=== PATIENT | male | born 1965 | race Caucasian/White ===

== ENCOUNTER → 2021-12-29 11:22 | Outpatient (BNVA) | payer OTHER, SELFPAY | PROVIDERS: Family Provider Family Medicine; PCP Family Medicine; Visit Provider Family Medicine | DX: E78.5 Hyperlipidemia, unspecified (principal); I10 Essential (primary) hypertension; E11.8 Type 2 diabetes mellitus with unspecified complications | CPT/HCPCS: 80053; 80061; 83036; 85025 ==

== ENCOUNTER 2022-02-16 07:22 | Outpatient (CLI) | payer OTHER, SELFPAY ==
--- NOTE | 2022-02-16 | ECG_ITS ---
[facility] Test Date: 2022-02-16 Pat Name: Evangelista Santos Department: Room: Gender: Male Patient Transport Orderly: : 1965 Requested By: Pamela Urbina Order Number: [id number] Saurabh MD: Pamela Urbina M.D. Interpretive Statements NAME OF STUDY: EXERCISE SESTAMIBI STRESS TEST INDICATION: Chest Pain, PROCEDURE: The baseline electrocardiogram showed normal sinus rhythm with normal ST-Ts. At the baseline, the patient's blood pressure was 142/105 mm Hg with a heart rate of 90. The patient exercised for 4 minutes and 46 seconds on a standard Heber protocol. Patient attained a maximum heart rate of 150 beats per minute(92% of the maximum predicted heart rate) with a blood pressure at the peak exercise of 196/91 mm Hg. The EKG at the peak exercise revealed no significant changes. Patient did not have any chest pain or any significant arrhythmis with the exercise Sestamibi was injected 1 minute prior to the peak exercise During the recovery phase, there were no new changes. Blood pressure at the end of the recovery phase was 134/97 mm Hg with a heart rate of 103 per minute. CONCLUSION: 1. No significant EKG changes with the treadmill exercise 2. No exercise-induced chest pain or cardiac arrhythmia. Hypertensive response to exercise 3. Impaired exercise tolerance, attained a maximum of 7.0 METs 4. Sestamibi/Sestamibi perfusion results pending; see separate report. Electronically Signed On 02-21-2022 19:46:44 CDT by Pamela Urbina M.D. [id number]
[2022-02-16 07:30] VITALS: BMI 47.2
--- NOTE | 2022-02-16 08:03 | NMCV_ITS ---
NM simba perf SPECT r/s* [id number] Tom Evangelista Age: 56 Gender: M : 1965 Exam Date: 02/16/2022 08:45 Ordering Phys: Pamela Urbina MD ([email or web address]) Technologist: KALE Lujan Exam Location: [facility] Indications: CORONARY ANGIOPLASTY STATUS STRESS TEST [facility] IMAGE PROTOCOL Rest/Stress 1 Exercise Day Radiopharmaceutical Dose (mCi) Administration Site Administered by Rest: Tc-99m 10.7 IV KALE Tompkins Sestamibi Stress:Tc-99m 32.5 IV KALE Tompkins Sestamibi Rest: 16-Feb-2022 60 Discovery 630 Stress: 16-Feb-2022 30 Discovery 630 Radiopharmaceutical was injected at 87 % maximum heart rate. Images obtained in supine and prone position. SPECT RESULTS Technical Quality: Excellent Raw Data Analysis: Normal Image Corrections: No attenuation or motion correction applied Summed Stress Score: 1 Summed Rest Score: 0 Summed Difference Score: 1 PERFUSION FINDINGS Yes small area of decreased tracer uptake in the mid anteroseptal and inferior wall segments regions. Some reversibility was noted in the mid anteroseptal region with the supine imaging. However with the prone imaging, no significant reversible defects were noted FUNCTIONAL RESULTS (calculated via Gated SPECT) Stress Image LV EF (%): 67 Stress EDV (mL):124 TID: 0.94 Stress ESV (mL):41 FUNCTIONAL FINDINGS: Segmental wall motion analysis revealing no gross wall motion normalities. IMPRESSIONS 1. Small area of reversible defect in the mid anteroseptal region with the supine imaging suggesting ischemia in the distribution of the left anterior descending artery. However because of the inconsistency, the reliability is questionable. 2. Normal LV ejection fraction of 67%. 3. LV wall motion analysis revealing no gross wall motion normalities. 4. Normal LV volume No similar previous studies are available for comparison Dr Pamela Urbina MD [facility] (Electronically Signed) Final Date: 16 February 2022 20:42 S
[2022-02-16 09:42] VITALS: BP 134/97; PULSE 100
== END 2022-02-16 07:23 | disposition home or self-care (01) ==
LOC: CDL 07:25
PROVIDERS: PCP Family Medicine; Visit Provider Internal Medicine Cardiovascular Disease
DX: R07.9 Chest pain, unspecified (principal); Z98.61 Coronary angioplasty status
CPT/HCPCS: 78452; 93017; A9500

== ENCOUNTER → 2022-02-20 11:27 | Outpatient (BNVA) | payer OTHER, SELFPAY | PROVIDERS: PCP Family Medicine; Visit Provider Clinical Nurse Specialist Adult Health | DX: R30.0 Dysuria (principal); R31.9 Hematuria, unspecified | CPT/HCPCS: 81000 ==

== ENCOUNTER 2022-02-27 13:58 | Outpatient (CLI) | payer OTHER, SELFPAY ==
--- NOTE | 2022-02-27 14:30 | USCV_ITS ---
Evangelista Santos Age: 56 Gender: M : 1965 Exam Date: 02/27/2022 14:17 Ordering Phys: Pamela Urbina MD ([email or web address]) Technologist: Filomena Guevara Exam Location: [facility] [place] Indication: SOB BP: 142 / 86 HR: 70 Rhythm: Sinus Technical Quality: Adequate MEASUREMENTS (Male / Female) Normal Values 2D ECHO LV Diastolic Diameter PLAX 4.7 cm 4.2 - 5.9 / 3.9 - 5.3 cm LV Systolic Diameter PLAX 2.3 cm LV Chamber Size 4.6 cm IVS Diastolic Thickness 1.5 cm 0.6 - 1.0 / 0.6 - 0.9 cm IVS Systolic Thickness 1.7 cm LVPW Diastolic Thickness 1.8 cm 0.6 - 1.0 / 0.6 - 0.9 cm LVPW Systolic Thickness 1.8 cm RV Chamber Size 4.5 cm LVOT Diameter 2.0 cm LV Ejection Fraction 2D Teich 82.7 % LV Ejection Fraction MOD 2C 78.1 % LV Ejection Fraction 2C AL 77.2 % LA Diameter 3.6 cm LA Width 3.2 cm LA Height 4.7 cm RA Width 3.6 cm RA Height 4.2 cm Aorta at Sinotubular Diameter 3.3 cm IVC Diameter 2.4 cm M-MODE Aortic Annulus Diameter 3.8 cm LA Ao Ratio MM 1.1 MV E Point Septal Separation 0.6 cm DOPPLER AV Peak Velocity 169.0 cm/s LVOT Peak Velocity 126.0 cm/s AV Area Cont Eq vti 1.8 cm squared AV Area Cont Eq pk 2.3 cm squared MV Area PHT 4.4 cm squared Mitral E to A Ratio 1.4 MV E' Velocity 124.0 cm/s Mitral E to LV E' Septal Ratio 16.8 TR Peak Velocity 202.3 cm/s TR Peak Gradient 16.4 mmHg TR Mean Velocity 129.5 cm/s TR Mean Gradient 8.1 mmHg TR Velocity Time Integral 41.7 cm TV Peak E Velocity 44.0 cm/s Right Atrial Pressure 3.0 mmHg Pulmonary Artery Systolic Pressu 19.4 mmHg PV Peak Velocity 83.0 cm/s RV Acceleration Time 0.1 s RV Ejection Time 0.3 s RV AcT/ET 0.4 FINDINGS Left Ventricle Normal left ventricular size and systolic function, EF 70 %. No regional wall motion abnormalities. Right Ventricle The right ventricle is normal in size and function. Right Atrium The right atrium is normal in size. Left Atrium The left atrium is normal in size. Mitral Valve No gross abnormalities noted Aortic Valve No gross abnormalities noted Tricuspid Valve No gross abnormalities noted.trace tricuspid valve regurgitation. Pulmonic Valve Pulmonic valve not well visualized. Pericardium Normal pericardium without effusion. Aorta Normal ascending aorta dimension. IVC Inferior vena cava not visualized. CONCLUSIONS Normal left ventricular size and systolic function, EF 70 %. No regional wall motion abnormalities. Trace tricuspid valve regurgitation. Normal cardiac chamber sizes. No significant valvular abnormalities There is no pericardial effusion. Compared to the study from 12/21/2016, there may not be significant change Technically difficult study because of the poor ultrasonic window. Dr Pamela Urbina MD [facility] (Electronically Signed) Final Date: 02 March 2022 09:22 S
== END 2022-02-27 13:59 | disposition home or self-care (01) ==
LOC: RAD 13:59
PROVIDERS: PCP Family Medicine; Visit Provider Internal Medicine Cardiovascular Disease
DX: I25.118 Atherosclerotic heart disease of native coronary artery with other forms of angina pectoris (principal); R06.02 Shortness of breath; I36.1 Nonrheumatic tricuspid (valve) insufficiency
CPT/HCPCS: 93306

== ENCOUNTER → 2022-10-06 08:36 | Outpatient (BNVA) | payer OTHER, SELFPAY | PROVIDERS: PCP Family Medicine; Visit Provider Family Medicine | DX: I10 Essential (primary) hypertension (principal); E78.5 Hyperlipidemia, unspecified; E11.9 Type 2 diabetes mellitus without complications; Z00.00 Encounter for general adult medical examination without abnormal findings; M19.90 Unspecified osteoarthritis, unspecified site | CPT/HCPCS: 80053; 80061; 83036; 84153; 84550; 85025; 86140; 86160; 86162; 86235; 86255; 86376; 86431 ==

== ENCOUNTER → 2022-12-21 17:10 | Outpatient (BNVA) | payer OTHER, SELFPAY | PROVIDERS: PCP Family Medicine; Visit Provider Family Medicine | DX: J06.9 Acute upper respiratory infection, unspecified (principal); Z20.822 Contact with and (suspected) exposure to COVID-19 | CPT/HCPCS: 87426 ==

== ENCOUNTER 2022-12-26 18:59 | Emergency (ER) | payer OTHER, SELFPAY ==
[2022-12-26 19:18] VITALS: BP 166/80; PULSE 82; RESP 14; TEMP 36.9; O2SAT 95
--- NOTE | 2022-12-26 19:42 | ED_ITS ---
HPI - Skin/Abscess/Foreign Bdy General: Chief complaint: Skin/Abscess/Foreign Body Stated complaint: Swollen Tick Bite Time Seen by Provider: 12/26/22 19:20 Source: patient Mode of arrival: ambulatory Limitations: no limitations History of Present Illness: 57-year-old male states that he had a bug bite to his left inner leg last week. He states have some body aches his PCP thought he may have tick fever started him on doxycycline he states that over the last 2 days that spot has grown larger it appears to be an abscess. States he squeezed it did get some purulent drainage. He denies any fevers he denies any worsening proving factors. Associated symptoms: Reports chills; Deny fever(s), nausea or vomiting Review of Systems Const: Reports: chills and body aches; Denies: fever(s) ENMT: Denies: throat pain Card: Denies: chest pain Resp: Denies: dyspnea GI: Denies: nausea or vomiting Musc: Denies: back pain Skin/Breast: Denies: rash Neuro: Denies: headache(s) PFSH ED PFSH: Medical History Atherosclerotic heart disease CAD (coronary artery disease), [place] coronary artery Diabetes Hyperlipidemia Hypertension Lung nodule KARY on CPAP Sleep disorder Surgical History History of PTCA PCI to mid bifurcating LAD with drug-eluting stent and balloon angioplasty to ostial jailed diagonal - 2 Hx of arthroscopic knee surgery No significant past surgical history Family History Father CAD (coronary artery disease), Onset Age: 50 valve replacement, [place] Diabetes Hypertension Cancer Lung disease Bleeding disorder Clotting disorder Grandfather No problems noted. Mother Cancer Lung disease Sister Cancer Lung disease Denies family history of Dementia Chronic kidney disease (CKD) Suicide Anesthesia complication Stroke Social History Smoking and tobacco status: never smoked Alcohol intake: former Substance/Drug Use: never Physical Exam Const: COMMON NORMALS: no acute distress and patient oriented x3 HENMT: COMMON NORMALS: normocephalic and atraumatic HEAD & SCALP: normocephalic and atraumatic Eye: COMMON NORMALS: conjunctivae normal CONJUNCTIVA: Yes conjunctivae normal Neck/C-Spine: COMMON NORMALS: supple Chest: COMMONS NORMALS: normal inspection of the chest Resp: COMMON NORMALS: normal respiratory effort Cardio: COMMON NORMALS: regular rate RATE: regular rate Extremity: NARRATIVE EXTREMITY EXAM: 3 cm abscess to the left inner thigh Neuro: COMMON NORMALS: patient oriented x3 Psych: COMMON NORMALS: mental status grossly normal Skin: COMMON NORMALS: no rashes or lesions noted GENERAL SKIN EXAM: no rashes or lesions noted Procedures Abscess I/D Site: lower extremity Side (if applicable): right Local Anesthetic: lidocaine 1% Amount of anesthesia used (mL): 8 Technique: incised with #11 blade Irrigation: Yes Course Vital Signs: Vital signs: Vital Signs Temperature 98.4 F 12/26/22 19:18 Pulse Rate 82 12/26/22 19:18 Respiratory Rate 14 12/26/22 19:18 Blood Pressure 166/80 12/26/22 19:18 Pulse Oximetry 95 12/26/22 19:18 Oxygen Delivery Me thod Room Air 12/26/22 19:18 MDM - Skin/Abscess/Foreign Bdy Medicial Decision Making Patient presents with an abscess to his left leg did incise and drain it we will start him on Bactrim he is to continue his doxycycline he is to follow-up with PCP and return if worsening. Discharge Plan Discharge Patient Disposition: Home Clinical Impression: Abscess of skin or subcutaneous tissue Condition: Stable Prescriptions: New sulfamethoxazole-trimethoprim [Bactrim DS] 800-160 mg tablet 1 tab PO BID 10 Days Qty: 20 0RF No Action naproxen sodium [Aleve] 220 mg tablet 220 mg PO BID PRN doxycycline hyclate 100 mg capsule 100 mg PO BID Qty: 20 0RF prednisone 20 mg tablet 20 mg PO DAILY Qty: 5 0RF Rx Instructions: take with food. ondansetron 4 mg tablet,disintegrating 4 mg PO Q6H PRN (Reason: nausea and vomiting) Qty: 20 11RF amlodipine 5 mg tablet 5 mg PO DAILY Qty: 90 3RF atorvastatin 40 mg tablet 40 mg PO DAILY Qty: 90 3RF clopidogrel 75 mg tablet 75 mg PO DAILY Qty: 90 3RF lisinopril-hydrochlorothiazide 20-12.5 mg tablet 1 tab PO DAILY Qty: 90 3RF metformin 500 mg tablet See Rx Instructions .ROUTE .COMPLEX Qty: 180 3RF Dose Instruction: TAKE 1 TABLET TWICE A DAY Rx Instructions: TAKE 1 TABLET TWICE A DAY Discharge Orders: Discharge ED (Routine); Ordered 12/26/22 Ordered By: Bebe Barreto Referrals: Richmond Rogel MD [Primary Care Provider] - Discharge Diet: Advance as tolerated Discharge Activity: Resume usual activity Patient Instructions: Abscess (ED) Coding Level of Care Code ED 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
== END 2022-12-26 19:55 | disposition home or self-care (01) ==
PROVIDERS: Emergency Provider Emergency Medicine; PCP Family Medicine
DX: L02.416 Cutaneous abscess of left lower limb (principal); I25.10 Atherosclerotic heart disease of native coronary artery without angina pectoris; E11.9 Type 2 diabetes mellitus without complications; Z79.02 Long term (current) use of antithrombotics/antiplatelets; E78.5 Hyperlipidemia, unspecified; I10 Essential (primary) hypertension
CPT/HCPCS: 10060; 99283

== ENCOUNTER → 2023-02-01 11:18 | Outpatient (BNVA) | payer OTHER, SELFPAY | PROVIDERS: PCP Family Medicine; Visit Provider Internal Medicine Rheumatology | DX: Z79.899 Other long term (current) drug therapy (principal); M19.90 Unspecified osteoarthritis, unspecified site; Z11.1 Encounter for screening for respiratory tuberculosis; Z11.59 Encounter for screening for other viral diseases; M45.6 Ankylosing spondylitis lumbar region | CPT/HCPCS: 36415; 73130; 73630; 83520; 86200; 86480; 86704; 86803; 86812; 87340 ==

== ENCOUNTER 2023-02-11 15:16 | Outpatient (CLI) | payer OTHER, SELFPAY ==
--- NOTE | 2023-02-11 15:23 | XR_ITS ---
WS: [id number] EXAMINATION: XR chest 2V* [id number] REASON FOR EXAM: positive ppd COMPARISON: 07/08/2017 ORDER DATE: 02/11/2023 3:27 PM FINDINGS: The lungs are clear of infiltrate. There is an ovoid smoothly outlined nodule in the lateral left u pper lung perhaps subpleural in location measuring 27 mm in long axis currently and previously 23 mm on 07/08/2017 without calcification. The cardiac and mediastinal outlines are unremarkable. There are no significant pleural effusions . No significant abnormalities are noted in the spine or remainder of the bony thorax. XR/XR chest 2V* [id number] IMPRESSION: No acute pulmonary change A SLIGHT INCREASE IN THE ABOVE-MENTIONED PULMONARY NODULE WHICH MAY REPRESENT A LIPOMA DUE TO ITS MINIMAL CHANGE IN A 5 YEAR PERIOD.
== END 2023-02-11 15:17 | disposition home or self-care (01) ==
PROVIDERS: PCP Family Medicine; Visit Provider Family Medicine
DX: R76.11 Nonspecific reaction to tuberculin skin test without active tuberculosis (principal); R91.1 Solitary pulmonary nodule
CPT/HCPCS: 71046

== ENCOUNTER → 2023-04-30 08:18 | Outpatient (BNVA) | payer OTHER, SELFPAY | PROVIDERS: PCP Family Medicine; Visit Provider Family Medicine | DX: Z22.7 Latent tuberculosis (principal); M06.041 Rheumatoid arthritis without rheumatoid factor, right hand; M06.042 Rheumatoid arthritis without rheumatoid factor, left hand; I10 Essential (primary) hypertension; E78.5 Hyperlipidemia, unspecified; E11.9 Type 2 diabetes mellitus without complications; M19.90 Unspecified osteoarthritis, unspecified site; Z79.899 Other long term (current) drug therapy; A93.8 Other specified arthropod-borne viral fevers | CPT/HCPCS: 80053; 80061; 80076; 82565; 84153; 85025; 86140 ==

== ENCOUNTER 2023-07-05 15:04 | Outpatient (CLI) | payer OTHER, SELFPAY ==
[2023-07-05 15:21] LABS: Basophils # 0.1 10^3/uL (0.0-0.1); Basophils % 1.1 %; Eosinophils # 0.2 10^3/uL (0.0-0.8); Eosinophils % 1.8 %; Hematocrit 49.4 % (37-53); Lymphocytes # 1.8 10^3/uL (0.8-4.8); Lymphocytes % 21.1 %; Mean Corpuscular Hemoglobin 29.6 pg (27-33); Mean Platelet Volume 11.3 fL (7.4-10.4); Monocytes # 0.7 10^3/uL (0.2-0.9); Monocytes % 7.8 %; Neutrophils # 5.72 10^3/uL (1.8-7.7); Neutrophils % 67.7 %; Nucleated Red Blood Cells % 0 %; Platelet Count 249 10^3/cmm (157-399); Red Blood Count 5.68 10^6/uL (3.85-5.65); Red Cell Distribution Width 13.1 % (12.1-15.1); White Blood Count 8.44 10^3/uL (3.29-11.43)
[2023-07-05 15:41] LABS: Alanine Aminotransferase 48 U/L (0-41); Albumin Level 4.6 g/dL (3.5-5.2); Alkaline Phosphatase 62 U/L (40-130); Aspartate Amino Transferase 25 U/L (0-40); Globulin 2.9 g/dL (1.3-4.6); Glomerular Filtration Rate 115.4 mL/min (90-130); Total Bilirubin 0.3 mg/dL (0.15-1.2); Total Protein 7.5 g/dL (6.6-8.7)
== END 2023-07-05 15:05 | disposition home or self-care (01) ==
LOC: LAB 15:05
PROVIDERS: Internal Medicine Rheumatology; PCP Family Medicine; Visit Provider Student in an Organized Health Care Education/Training Program
DX: M06.041 Rheumatoid arthritis without rheumatoid factor, right hand (principal); M06.042 Rheumatoid arthritis without rheumatoid factor, left hand; Z79.899 Other long term (current) drug therapy
CPT/HCPCS: 36415; 80076; 82565; 85025; 86140

== ENCOUNTER → 2023-12-23 13:02 | Outpatient (BNVA) | payer OTHER, SELFPAY | PROVIDERS: PCP Family Medicine; Visit Provider Family Medicine | DX: N40.0 Benign prostatic hyperplasia without lower urinary tract symptoms (principal); R97.20 Elevated prostate specific antigen [PSA] | CPT/HCPCS: 84153 ==

== ENCOUNTER → 2023-12-29 14:33 | Outpatient (BNVA) | payer OTHER, SELFPAY | PROVIDERS: PCP Family Medicine; Visit Provider Internal Medicine Rheumatology | DX: M06.041 Rheumatoid arthritis without rheumatoid factor, right hand (principal); M06.042 Rheumatoid arthritis without rheumatoid factor, left hand; Z79.899 Other long term (current) drug therapy; Z71.85 Encounter for immunization safety counseling; Z22.7 Latent tuberculosis | CPT/HCPCS: 80076; 82565; 85025; 86140 ==

== ENCOUNTER → 2024-03-06 13:42 | Outpatient (BNVA) | payer OTHER, SELFPAY | PROVIDERS: PCP Family Medicine; Visit Provider Family Medicine | DX: R50.9 Fever, unspecified (principal); M25.50 Pain in unspecified joint | CPT/HCPCS: 80053; 81000; 85025; 86140; 86618; 86666; 86757; 87426 ==

== ENCOUNTER → 2024-05-10 14:38 | Outpatient (BNVA) | payer OTHER, SELFPAY | PROVIDERS: PCP Family Medicine; Visit Provider Internal Medicine Rheumatology | DX: M17.9 Osteoarthritis of knee, unspecified (principal); M25.569 Pain in unspecified knee | CPT/HCPCS: 73562 ==

== ENCOUNTER → 2024-05-24 13:27 | Outpatient (BNVA) | payer OTHER, SELFPAY | PROVIDERS: PCP Family Medicine; Visit Provider Family Medicine | DX: R97.20 Elevated prostate specific antigen [PSA] (principal) | CPT/HCPCS: 84153 ==

== ENCOUNTER → 2024-07-07 08:34 | Outpatient (BNVA) | payer OTHER, SELFPAY | PROVIDERS: PCP Family Medicine; Visit Provider Family Medicine | DX: E11.9 Type 2 diabetes mellitus without complications (principal); R97.20 Elevated prostate specific antigen [PSA]; N40.0 Benign prostatic hyperplasia without lower urinary tract symptoms | CPT/HCPCS: 83036 ==

== ENCOUNTER 2024-11-27 16:03 | Outpatient (CLI) | payer OTHER, SELFPAY ==
[2024-11-27 16:48] LABS: Basophils # 0.1 10^3/uL (0.0-0.1); Basophils % 1.1 %; Eosinophils # 0.2 10^3/uL (0.0-0.8); Eosinophils % 2.7 %; Hematocrit 51.4 % (37-53); Lymphocytes # 2.3 10^3/uL (0.8-4.8); Lymphocytes % 26.3 %; Mean Corpuscular HGB Conc 31.9 g/dL (30-55); Mean Corpuscular Hemoglobin 28.5 pg (27-33); Mean Corpuscular Volume 89.2 fl (82-101); Mean Platelet Volume 11.2 fL (7.4-10.4); Monocytes # 0.8 10^3/uL (0.2-0.9); Monocytes % 8.6 %; Neutrophils # 5.32 10^3/uL (1.8-7.7); Neutrophils % 60.5 %; Nucleated Red Blood Cells % 0 %; Platelet Count 266 10^3/cmm (157-399); Red Blood Count 5.76 10^6/uL (3.85-5.65); Red Cell Distribution Width 13.4 % (12.1-15.1); White Blood Count 8.81 10^3/uL (3.29-11.43)
[2024-11-27 16:50] LABS: Erythrocyte Sedimentation Rate < 1 mm/hr (0-10)
[2024-11-27 17:32] LABS: Alanine Aminotransferase 43 U/L (0-41); Albumin Level 4.7 g/dL (3.5-5.2); Alkaline Phosphatase 78 U/L (40-130); Aspartate Amino Transferase 24 U/L (0-40); Globulin 2.6 g/dL (1.3-4.6); Glomerular Filtration Rate 114.6 mL/min (90-130); Total Bilirubin 0.3 mg/dL (0.15-1.2); Total Protein 7.3 g/dL (6.6-8.7)
== END 2024-11-27 16:04 | disposition home or self-care (01) ==
PROVIDERS: PCP Family Medicine; Visit Provider Internal Medicine Rheumatology
DX: Z79.899 Other long term (current) drug therapy (principal); M06.041 Rheumatoid arthritis without rheumatoid factor, right hand; M06.042 Rheumatoid arthritis without rheumatoid factor, left hand
CPT/HCPCS: 36415; 80076; 82565; 85025; 85651; 86140

== ENCOUNTER → 2024-11-28 12:01 | Outpatient (BNVA) | payer OTHER, SELFPAY | PROVIDERS: PCP Family Medicine; Visit Provider Internal Medicine Rheumatology | DX: M79.671 Pain in right foot (principal) | CPT/HCPCS: 73630 ==

== ENCOUNTER → 2024-12-07 08:23 | Outpatient (BNVA) | payer OTHER, SELFPAY | PROVIDERS: PCP Family Medicine; Visit Provider Family Medicine | DX: M06.041 Rheumatoid arthritis without rheumatoid factor, right hand (principal); M06.042 Rheumatoid arthritis without rheumatoid factor, left hand; I25.118 Atherosclerotic heart disease of native coronary artery with other forms of angina pectoris; E78.5 Hyperlipidemia, unspecified; R76.11 Nonspecific reaction to tuberculin skin test without active tuberculosis; R91.1 Solitary pulmonary nodule | CPT/HCPCS: G0103 ==

== ENCOUNTER → 2025-03-26 13:41 | Outpatient (BNVA) | payer OTHER, SELFPAY | PROVIDERS: PCP Family Medicine; Visit Provider Family Medicine | DX: Z00.00 Encounter for general adult medical examination without abnormal findings (principal); R30.0 Dysuria | CPT/HCPCS: 81000 ==

== ENCOUNTER → 2025-03-27 14:20 | Outpatient (BNVA) | payer OTHER, SELFPAY | PROVIDERS: PCP Family Medicine; Visit Provider Family Medicine | DX: Z00.00 Encounter for general adult medical examination without abnormal findings (principal); N39.0 Urinary tract infection, site not specified | CPT/HCPCS: 87086 ==

== ENCOUNTER → 2025-04-12 14:43 | Outpatient (BNVA) | payer OTHER, SELFPAY | PROVIDERS: PCP Family Medicine; Visit Provider Family Medicine | DX: N13.30 Unspecified hydronephrosis (principal) | CPT/HCPCS: 80053 ==

== ENCOUNTER 2025-04-30 06:01 | Emergency (ER) | payer OTHER, SELFPAY ==
--- OUTSIDE RECORDS SUMMARY | 2024-11-23 10:00 | XMS_ITS ---
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 Role Phone Richmond Rogel Primary Care Provider UnavailRichmond Hong Unavailable [phone] Jordana Palacios Unavailable REASON FOR VISIT 6m f/u w psa Encounters Encounter Location Date Provider Diagnosis [facility] [address] [place] [address] [address] 11/23/2024 Jordana Palacios Plan Of Treatment Next Appt Details Provider Name:Jordana Sarabia, 12/27/2025 03:00:00 PM, [address] [place] [address], [place], [address], Progress Notes * NICK RIVASOB: 4 (59 yo M)Acc No.[id number]:11/23/2024 Progress Notes Patient: CHARU BECK Provider: EVETTE Glaser :1965 A ge:59 Y S ex:Male Date:11/23/2024 Address:[address] , [place], [place] Pcp:Richmond Rogel Subjective: * Chief Complaints: * 6 m f/u w psa * Electronic signature of EVETTE Fritz on 04/30/2025 at 06:04 AM CDT Sign off status: Pending * Provider: EVETTE Glaser Date: 0 11/23/2024 Generated for Salvatore oates/Dimple/Ambrosio on: 1 06:04 AM CDT
--- OUTSIDE RECORDS SUMMARY | 2025-04-26 14:30 | XMS_ITS | Encounter Summary ---
Author Organization [facility] Address [address] [place] [address] Care Team Providers Care Store Keeper Name Role Phone Richmond Rogel MD Primary Care Provider [phone] Reason for Referral * CT Scan (Urgent) - Closed Specialty Diagnoses / Procedures Referred By Neda banks Referred To Contact Radiology Diagnoses Abdominal pain, RLQ Prostatitis, unspecified prostatitis type Hydronephrosis, unspecified hydronephrosis type Procedures CT ABDOMEN PELVIS W CONTRAST CT ABDOMEN PELVIS W CONTRAST Mini Don FNP [address] [place] [phone] Phone: tel: fax: [facility] CT Scan [place] [address] [place] [address] Phone: tel: fax: Referral ID Status Reason Start Date Expiration Date Visits Re quested Visits Authorized [id number] Closed 04/26/2025 05/27/2026 1 1 Reason for Visit * Reason Comments Establish Care Encounter Details Date Type Department Care Team (Late st Contact Info) Description 04/26/2025 2:30 PM CDT Office Visit [facility] Urology [address] [phone] Mini Don FNP [address] [place] [phone] Abdominal pain, RLQ (Primary Dx); Prostatitis, unspecified prostatitis type; BPH with obstruction/lower urinary tract symptoms; History of elevated PSA; Hydronephrosis, unspecified hydronephrosis type Social History Tobacco Use Types Packs/Day Years Used Date Smoking Tobacco: Never Smokeless Tobacco: Never Alcohol Use Standard Drinks/Week Comments No 0 (1 standard drink = 0.6 oz pur e alcohol) Feeling Safe Answer Date Recorded Are you in a relationship wi th someone who hurts you emotionally and/or physically? No 04/07/2025 Food Insecurity Answer Date Recorded Patient needs follow up regardin 11/08/2024 Transportation Needs Answer Date Record ed Patient needs follow up regardin 11/08/2024 Housing Stability Answer Date Recorded Social/Environmental Concerns No concerns Utility Needs Answer Date Recorded Patient needs follow up regardin 11/08/2024 Sex and Gender Information Value Date Recorded Sex Assigned at Male 07/06/2024 3:06 PM COMMISSARY ASSISTANT Legal Sex Male 4:52 PM COMMISSARY ASSISTANT Gender Identity Male 07/06/2024 3:06 PM COMMISSARY ASSISTANT Sexual Orientation Not on file documented as of this encounter Progress Notes * Britta Shell - 04/26/2025 4:04 PM CDT Bladder Catherization Date/Time: 04/26/25 4:04 PM Performed by: Britta Shell Authorized by: Mini Don Indications: catheter change Catheter size: 16F Comments: Patient here for catheter change. Balloon deflated, cath removed intact without difficulty. Inserted 16F coude tip catheter, inflated balloon 10mls, attached urinary drainage bag. Patient tolerated procedure well. * Mini Don FNP - 04/26/2025 12:58 PM CDT HISTORY & PHYSICAL EXAM Patient: Evangelista Santos / 59 y.o. / male : 1965 Chief Complaint: Hematuria History of Present Illness: Evangelista Santos is a 59 y.o. year-old male hospitalized in March for GASPER and bilateral hydronephrosis secondary to urinary retention and developed hematuria. States he had UTI symptoms that was treated by PCP with several antibiotics without relief. Dr. Haynes had seen in hospital, planned for outpatient cystoscopy and voiding trial. He failed trial of void on 04/19/2025 with over 1000 mL emptied from bladder. 04/23/2025 patient called in to report low-grade fever 99-102 (has not had for two days) with right lower abdominal pain (rated anywhere from 2-8/10), rectal pain, and bilateraltesticular pain. Reports pain was present prior to the catheter insertion but is worsening. Urine remains clear yellow in Kelly bag. Has seen urologist in [place] previously seen for elevated PSA. He continues surveillance with PSA and uses tamsulosin with good results. Last PSA in November was reported to be 3.8 Past Medical History: Diagnosis Date Allergy Arthritis RA BPH (benign prostatic hyperplasia) Coronary artery disease 2017 X1 stent placed - after Pt. didn't feel well. No Cardiac CP Headache Hyperlipidemia Obstructive sleep apnea C-pap Prediabetes Pulmonary tuberculosis non active Unspecified essential hypertension Past Surgical History: Procedure Laterality Date HX COLONOSCOPY 2014 HX KNEE ARTHROSCOPY Left 2016 Menisc HX PTCA 2017 X1 [place] ARTHRP KNE CONDYLE&PLATU MEDIAL&LAT COMPARTMENTS Left 2024 KNEE ARTHROPLASTY TOTAL REPLACEMENT performed by Shanell Kaminski MD at [facility] OR [place] ARTHRP KNE CONDYLE&PLATU MEDIAL&LAT COMPARTMENTS Right 01/10/2025 KNEE ARTHROPLASTY TOTAL REPLACEMENT performed by Shanell Kaminski MD at [facility] OR Current Outpatient Medications on File Prior to Visit Medication Sig Dispense Refill acetaminophen (TYLENOL) 500 mg tablet Take 1 Tablet (500 mg) by mouth every 6 hours as needed for Pain, Break-Through or Pain, Mild / Temperature. 30 Tablet 0 phenazopyridine 200 mg tablet Take 1 Tablet (200 mg) by mouth 3 times daily as needed for Pain (bladder spasm). 20 Tablet 0 tamsulosin (FLOMAX) 0.4 mg capsule Take 2 Capsules (0.8 mg) by mouth daily after supper. 60 Capsule2 lisinopriL (PRINIVIL) 20 mg tablet Take 1 Tablet (20 mg) by mouth daily. 30 Tablet 2 oxyCODONE (ROXICODONE) 5 mg tablet Take 1 Tablet (5 mg) by mouth every 8 hours as needed for Pain, Moderate. Max Daily Amount: 15 mg 28 Tablet 0 tiZANidine (ZANAFLEX) 4 mg Tablet Take 1 Tablet (4 mg) by mouth daily at bedtime. 30 Tablet 0 DULoxetine (Cymbalta) 30 mg Capsule, Delayed Release(E.C.) Take 1 Capsule (30 mg) by mouth daily. 42 Capsule 0 tranexamic acid (LYSTEDA) 650 mg Tablet tablet Take 3 Tablets (1,950 mg) by mouth daily at bedtime.9 Tablet 0 polyethylene glycol 3350 (MIRALAX) 17 gram/dose Powder Take 1 Scoop (17 Grams) by mouth daily. Mix in liquid and drink as directed. 510 Gram 0 aspirin (CHELSEY) 81 mg Tablet Take 81 mg by mouth daily with breakfast. docusate sodium (COLACE) 100 mg capsule Take 1 Capsule (100 mg) by mouth 2 times daily. 60 Capsule 0 atorvastatin (LIPITOR) 40 mg tablet Take 40 mg by mouth daily. multivitamin (DAILY-JEAN) tablet Take 1 Tablet by mouth daily. amLODIPine (NORVASC) 5 mg tablet Take 1 Tablet by mouth daily. hydroxychloroquine (PLAQUENIL) 200 mg tablet Take 200 mg by mouth 2 times daily. No current facility-administered medications on file prior to visit. Allergies Allergen Reactions Amoxicillin Nausea and Vomiting Family History Problem Relation Name Age of Onset Lung Cancer Father Heart Disease Father 50 X3 heart attacks, bypass Diabetes Father Cataract Father Lung Cancer Mother Diabetes Mother Lung Cancer Sister Healthy Daughter Healthy Son Social History Socioeconomic History Marital status: Spouse name: Not on file Number of children: Not on file Years of education: Not on file Highest education level: Not on file Occupational History Not on file Tobacco Use Smoking status: Never Smokeless tobacco: Never Vaping Use Vaping status: Never Used Substance and Sexual Activity Alcohol use: No Drug use: No Sexual activity: Not on file Other Topics Concern Not on file Social History Narrative Not on file Health-Related Social Needs Food Insecurity: Not on file (11/08/2024) Transportation Needs: No Transportation Needs (11/08/2024) Transportation Needs Patient needs follow up regarding:: 1 Domestic Concerns: Not At Risk (04/07/2025) Feeling Safe Patient has indicated abuse: : No Housing Stability: Low Risk (08/09/2024) Housing Stability Patient needs follow up regarding:: No concerns Review of Systems: 12 point ROS otherwise negative. Physical Examination: Constitutional: Nontoxic appearing. No acute distress. Head: Normocephalic, atraumatic. Eyes: Extraocular movements intact, no scleral icterus. Neck: Normal range of motion. Cardiovascular: Regular rate and rhythm. Pulmonary: Respirations unlabored on room air. No audible wheezes. Abdomen: Nondistended, obese, nonpainful to palpation Genitourinary: Normal circumcised male phallus with Kelly catheter in place. Normal-appearing scrotum. Palpably normal right testicle with mild hydrocele. No palpable varicocele or testicular mass. Palpably normal left testicle without palpable varicocele or testicular mass. He was diffusely tenderthroughout testicular exam, no specific painful area identified. Rectal exam: negative without mass, lesions or tenderness, PROSTATE EXAM: smooth and symmetric without nodules or tenderness, though exam was limited to massive gland size, enlarged 100 cc+. Musculoskeletal: Normal range of motion and strength of bilateral upper and lower extremities. Neurological: Alert and awake. Gait normal. Skin: Skin is warm and dry. No petechiae or rashes. Psychiatric: Appropriate mood and affect. Normal behavior. Labs: Chemistry Lab Results Component Value Date NA 145 04/09/2025 K 3.6 04/09/2025 CL 108 (H) 04/09/2025 CO2 24 04/09/2025 CA 8.5 (L) 04/09/2025 BUN 20 04/09/2025 CREAT 0.92 04/09/2025 GLUCOSE 110 (H) 04/09/2025 ANIONGAP 13 04/09/2025 Hematology Lab Results Component Value Date WBC 10.4 04/09/2025 HGB 11.1 (L) 04/09/2025 HCT 33.3 (L) 04/09/2025 PLT 309 04/09/2025 MCV 83.5 (L) 04/09/2025 Urinalysis Lab Results Component Value Date/Time PHUA 6.0 04/07/2025 09:52 AM SGUR 1.009 04/07/2025 09:52 AM URINELEUKOC Negative 04/07/2025 09:52 AM NITRITEUA Negative 04/07/2025 09:52 AM KETONEURINE Negative 04/07/2025 09:52 AM PROTEINUA Negative 04/07/2025 09:52 AM GLUUA Negative 04/07/2025 09:52 AM BLOODUA Negative 04/07/2025 09:52 AM Coagulation No results for input(s): PT , INR , APTT in the last 72 hours. PSA No results found for: PSA , PSADIAG , PSASCRN , PSAFREE Imaging: Results for orders placed during the hospital encounter of 04/07/25 CT ABDOMEN PELVIS WO CONTRAST Narrative EXAM: CT ABDOMEN PELVIS WO CONTRAST DATE/TIME OF EXAM: 04/07/2025 11:47 AM REASON FOR EXAM: LLQ abdominal pain DIAGNOSIS: See Reason for Exam COMPARISON: None. TECHNIQUE: This examination was performed using automated exposure control, adjustment of mA or kV according to patient size, and/or use of iterative reconstruction technique. Axial images of the abdomen and pelvis obtained without contrast, multiplanar reformations evaluated. LIMITATIONS: Lack of intravenous contrast decreases sensitivity for the detection of solid organ lesions and inflammatory disease. FINDINGS: - Lower chest: Trace left pleural effusion with probable subsegmental atelectasis in the dependent lung bases. Subtle interlobular septal thickening. Coronary artery calcifications. - Liver: Normal attenuation and contour. - Gallbladder/Biliary: Cholelithiasis. - Pancreas: Within normal limits. - Adrenals: Within normal limits. - Spleen: Within normal limits. - Kidneys, ureters, urinary bladder: Significantly distended urinary bladder with bladder wall thickening and mild perivesical fat stranding. Associated bilateral moderate to severe hydroureteronephrosis with significant fat stranding surrounding the left kidney and left ureter; this could reflect a sequela of a forniceal rupture or superimposed urinary tract infection. No definitive urinary calculi in the kidneys, ureters, or urinary bladder. - Peritoneum and extraperitoneum: No ascites or free air. No suspicious lymphadenopathy. - Gastrointestinal tract: No evidence of a small bowel obstruction. Colonic diverticulosis; no findings to suggest superimposed acute colonic diverticulitis. - Reproductive System: Significant prostatomegaly. - Vascular: No abdominal aortic aneurysm. Mild to moderate burden of calcific atherosclerotic plaque. - Bones/Soft tissues: No suspicious osseous lesions. Moderate to severe degenerative disease in the lower lumbar spine with a chronic right-sided L5 pars interarticularis defect. Additional comments: None. Impression : 1. Significantly distended urinary bladder with abnormal bladder wall thickening and mild surrounding fat stranding. This could relate to the patient's significant prostatomegaly and a urinary outlet obstruction; correlate clinically for evidence of a superimposed urinary tract infection. 2. Moderate to severe bilateral hydroureteronephrosis likely relates to the above with significant fat stranding surrounding the left kidney and ureter. 3. No obstructing urolithiasis in the kidneys, ureters or urinary bladder. 4. Otherwise as above. . Assessment: Mr. Santos is a pleasant 59-year-old man presenting to urology clinic today with his Caitlin to establish care for urinary retention, hydronephrosis and hematuria following hospital visit. Patient failed initial TOV following discharge, catheter was replaced about a week ago. Patient has developed persistent fever, rectal pain, lower abdominal pain, and diffuse testicular pain. Catheter exchanged today. [place] revealed a massive prostate gland that was not specifically tender. Due to his symptoms, I am going to treat him preemptively for prostatitis with an extended course of Levaquin. He is allergic to penicillins and we will defer IM Rocephin. I will order blood work and stat CT to rule out prostatic abscess or underlying pathology. Vital signs stable, 150/82, 99 heart rate, 94% RA, 99.6 t He is aware to seek emergent medical attention for new or worsening symptoms. Plan: - Cath exchanged today -Urine culture - Levaquin x 90 days - CBC and CMP - Stat CT abdomen pelvis with contrast Will plan to follow-up in 1 month to discuss trial of void and cystoscopy or sooner if needed Signed: EVETTE Garcia 04/26/2025, 1:00 PM I appreciate the referral from No ref. provider found. documented in this encounter Plan of Treatment Upcoming Encounters Date Type Department Care Team (Late st Contact Info) Description 05/24/2025 9:00 AM COMMISSARY ASSISTANT Office Visit [facility] Urology [address] [place] [address] Mini Don, R D INTERN [address] [place] [phone] Pending Results Name Type Priority Associated Diagnoses Date /Time URINE CULTURE Microbiology Routine Prostatitis, unspecified prostatitis type 04/26/2025 3:43 PM CDT documented as of this encounter Procedures Procedure Name Priority Date/Time Associated Diagnosis Comments CBC WITH DIFFERENTIAL Routine 04/26/2025 4:08 PM CDT Prostatitis, unspecified prostatitis type COMPREHENSIVE METABOLIC PANEL Routine 04/26/2025 4:08 PM CDT Prostatitis, unspecified prostatitis type URINE CULTURE Routine 04/26/2025 3:43 PM CDT Prostatitis, unspecified prostatitis type documented in this encounter Results * CT ABDOMEN PELVIS W CONTRAST (04/27/2025 4:27 PM CDT) Anatomical Region Laterality Modality Abdomen Computed Tomogra phy 04/27/2025 4:02 PM CDT Impressions 04/27/2025 4:56 PM CDT IMPRESSION: 1. No findings in the renal parenchyma that would be suspicious for pyelonephritis. 2. Inflammatory changes are present around the ureters and renal darcy and urinary bladder suggesting an infective process. 3. Prominently enlarged prostate. 4. Diverticulosis without evidence of diverticulitis. 5. Cholelithiasis. Narrative 04/27/2025 4:56 PM CDT Exam: CT ABDOMEN PELVIS W CONTRAST Date/Time of Exam: 04/27/2025 4:27 PM Reason For Exam: RLQ abdominal pain, Pyelonephritis suspected, complicated history, prostatitis r/o abscess. Contiguous axial images were obtained through the abdomen and pelvis. Sagittal and coronal reformatted images are included. 100 mL of Isovue-300 was given intravenously. The kidneys are unremarkable and of normal size, contour and position. Strandy density and induration is present surrounding the renal darcy and ureters with mild dilatation of the right and left ureters present. There is no evidence of any ureteral stones. The donald of the urinary bladder prominently thickened. Stones are present in the gallbladder lumen. There is no evidence of any abdominal aortic aneurysm or dissection. The appendix is visualized and is unremarkable in appearance. Numerous diverticula are present throughout the colon. The prostate gland is prominently enlarged. A Kelly catheter is present. The liver, spleen, pancreas, and adrenals are unremarkable. There is no evidence of abnormal soft tissue masses, abnormal fluid collections or adenopathy in the abdomen or pelvis. Bowel loops are nondilated. There is no evidence of any free intraperitoneal air. Procedure Note Sina Mujica MD - 04/27/2025 Exam: CT ABDOMEN PELVIS W CONTRAST Date/Time of Exam: 04/27/2025 4:27 PM Reason For Exam: RLQ abdominal pain, Pyelonephritis suspected, complicated history, prostatitis r/o abscess. Contiguous axial images were obtained through the abdomen and pelvis. Sagittal and coronal reformatted images are included. 100 mL of Isovue-300 was given intravenously. The kidneys are unremarkable and of normal size, contour and position. Strandy density and induration is present surrounding the renal darcy and ureters with mild dilatation of the right and left ureters present. There is no evidence of any ureteral stones. The donald of the urinary bladder prominently thickened. Stones are present in the gallbladder lumen. There is no evidence of any abdominal aortic aneurysm or dissection. The appendix is visualized and is unremarkable in appearance. Numerous diverticula are present throughout the colon. The prostate gland is prominently enlarged. A Kelly catheter is present. The liver, spleen, pancreas, and adrenals are unremarkable. There is no evidence of abnormal soft tissue masses, abnormal fluid collections or adenopathy in the abdomen or pelvis. Bowel loops are nondilated. There is no evidence of any free intraperitoneal air. IMPRESSION: 1. No findings in the renal parenchyma that would be suspicious for pyelonephritis. 2. Inflammatory changes are present around the ureters and renal darcy and urinary bladder suggesting an infective process. 3. Prominently enlarged prostate. 4. Diverticulosis without evidence of diverticulitis. 5. Cholelithiasis. Mini Magda Law R D INTERN CT ORDERABLES Final Resu lt * (ABNORMAL) COMPREHENSIVE METABOLIC PANEL (04/26/2025 4:08 PM CDT) GLUCOSE 119(H) 65 - 99 mg/dL [facility] Comment: Fasting reference interval For someone without known diabetes, a glucose value between 100 and 125 mg/dL is consistent with prediabetes and should be confirmed with a follow-up test. BUN 21 7 - 25 mg/dL [facility] CREATININE 0.82 0.70 - 1.35 mg/dL [facility] GFR 100 > OR = 60 mL/min/1. 73m2 [facility] BUN/CREAT RATIO SEE NOTE: 6 - 22 (calc) [facility] Comment: Not Reported: BUN and Creatinine are within reference range. SODIUM 140 135 - 146 mmol/L [facility] POTASSIUM 4.6 3.5 - 5.3 mmol/L [facility] CHLORIDE 105 98 - 110 mmol/L [facility] CO2 24 20 - 32 mmol/L [facility] CALCIUM 10.3 8.6 - 10.3 mg/dL [facility] TOTAL PROTEIN 7.4 6.1 - 8.1 g/dL [facility] ALBUMIN 4.4 3.6 - 5.1 g/dL [facility] GLOBULIN 3.0 1.9 - 3.7 g/dL (calc) [facility] ALBUMIN/GLOBULIN RATIO 1.5 1.0 - 2.5 (calc) [facility] BILIRUBIN TOTAL 0.4 0.2 - 1.2 mg/dL [facility] ALKALINE PHOSPHATASE 85 35 - 144 U/L [facility] AST 21 10 - 35 U/L [facility] ALT 48(H) 9 - 46 U/L [facility] Comment: Test Performed at: [facility] [address] [place] [address] Flex Delcid Blood 04/26/2025 4:08 PM CDT 04/26/2025 4:09 PM CDT Mini Don R D INTERN CHEMISTRY ORDERABLES Final Result [facility] [phone] [facility] [address], [place] [address] * (ABNORMAL) CBC WITH DIFFERENTIAL (04/26/2025 4:08 PM CDT) WBC 15.3(H) 3.8 - 10.8 Thousand/ uL [facility] RBC 4.88 4.20 - 5.80 Million/u L [facility] HEMOGLOBIN 13.6 13.2 - 17.1 g/dL [facility] HEMATOCRIT 41.9 38.5 - 50.0 % [facility] MCV 85.9 80.0 - 100.0 fL [facility] MCH 27.9 27.0 - 33.0 pg [facility] MCHC 32.5 32.0 - 36.0 g/dL [facility] Comment: For adults, a slight decrease in the calculated MCHC value (in the range of 30 to 32 g/dL) is most likely not clinically significant; however, it should be interpreted with caution in correlation with other red cell parameters and the patient's clinical condition. RDW 14.1 11.0 - 15.0 % [facility] PLATELETS 304 140 - 400 Thousand/ uL [facility] MPV 11.7 7.5 - 12.5 fL [facility] NEUTROPHIL ABSOLUTE 9,180(H) 1,500 - 7,800 cells/uL [facility] BANDS ABSOLUTE 153 0 - 750 cells/uL [facility] METAMYELOCYTE ABSOLUTE 306(H) 0 cells/uL [facility] MYELOCYTE ABSOLUTE 765(H) 0 cells/uL [facility] LYMPHOCYTE ABSOLUTE 3,519 850 - 3,900 cells/uL [facility] MONOCYTE ABSOLUTE 612 200 - 950 cells/uL [facility] EOSINOPHIL ABSOLUTE 765(H) 15 - 500 cells/uL [facility] BASOPHILS ABSOLUTE 0 0 - 200 cells/uL [facility] NEUTROPHIL 60 % [facility] BANDS 1 % [facility] METAMYELOCYTE 2(H) % [facility] MYELOCYTES 5(H) % [facility] LYMPHOCYTES 23 % [facility] MONOCYTE 4 % [facility] EOSINOPHILS 5 % [facility] BASOPHILS 0 % [facility] COMMENT HEMATOLOGY [facility] Comment: The smear has been manually reviewed and the manual differential has been reported. Review of the peripheral smear reveals adequate numbers of platelets. Red cell morphology appears unremarkable Slide review performed at: [email or web address] [place] [address] [place] [address] Record Changer: Anibal CottonIA [id number] Test Performed at: [facility] [address] [place] [address] Flex Delcid Blood 04/26/2025 4:08 PM CDT 04/26/2025 4:09 PM CDT Mini Don R D INTERN HEMATOLOGY ORDERABLES Kaela l Result [facility] [phone] [facility] [address] [place] [address] documented in this encounter Visit Diagnoses Diagnosis Abdominal pain, RLQ- Primary Abdominal pain, right lower quadrant Prostatitis, unspecified prostatitis type BPH with obstruction/lower urinary tract symptoms Hypertrophy of prostate with urinary obstruction and other lower urinary tract symptoms (LUTS) History of elevated PSA Personal history of other specified diseases Hydronephrosis, unspecified hydronephrosis type Abdominal pain, RLQ Abdominal pain, right lower quadrant Prostatitis, unspecified prostatitis type Hydronephrosis, unspecified hydronephrosis type documented in this encounter Care Teams Store Keeper Relationship Specialty Start Date End Date Richmond Rogel MD [address] [place] [phone] PCP - General Family Practice 04/07/25 documented as of this encounter
--- OUTSIDE RECORDS SUMMARY | 2025-04-27 15:48 | XMS_ITS | Encounter Summary ---
Author Organization [facility] Address [address] [place] [address] Care Team Providers Care Pasta Maker Name Role Phone Richmond Rogel MD Primary Care Provider [phone] Reason for Referral * CT Scan (Urgent) - Closed Specialty Diagnoses / Procedures Referred By Neda banks Referred To Contact Radiology Diagnoses Abdominal pain, RLQ Prostatitis, unspecified prostatitis type Hydronephrosis, unspecified hydronephrosis type Procedures CT ABDOMEN PELVIS W CONTRAST CT ABDOMEN PELVIS W CONTRAST Mini Don FNP [facility] [address] [place] [phone] Phone: tel: fax: [facility] [place] [address] [place] [address] Phone: tel: fax: Referral ID Status Reason Start Date Expiration Date Visits Re quested Visits Authorized [id number] Closed 04/26/2025 05/27/2026 1 1 Reason for Visit * CT Scan (Urgent) - Closed Specialty Diagnoses / Procedures Referred By Neda banks Referred To Contact Radiology Diagnoses Abdominal pain, RLQ Prostatitis, unspecified prostatitis type Hydronephrosis, unspecified hydronephrosis type Procedures CT ABDOMEN PELVIS W CONTRAST CT ABDOMEN PELVIS W CONTRAST Mini Don FNP [address] [place] [phone] Phone: tel: fax: [facility] [place] [address] [place] [address] Phone: tel: fax: Referral ID Status Reason Start Date Expiration Date Visits Re quested Visits Authorized [id number] Closed 04/26/2025 05/27/2026 1 1 Encounter Details Date Type Department Care Team (Late st Contact Info) Description 04/27/2025 3:48 PM CDT - 04/27/2025 11:59 PM CDT Hospital Encounter [facility] [place] [address] [place] [address] Mini Don, SR. DIRECTOR PRODUCT MANAGEMENT [address] [place] [phone] Arrived Discharge Disposition: Home or Self Care Social History Tobacco Use Types Packs/Day Years [...] Sex Assigned at Male 07/06/2024 3:06 PM DISH MACHINE OPERATOR Legal Sex Male 4:52 PM DISH MACHINE OPERATOR Gender Identity Male 07/06/2024 3:06 PM DISH MACHINE OPERATOR Sexual Orientation Not on file documented as of this encounter Medications at Time of Discharge Bacillus subtilis-inulin 1.5 billion cell-1 gram Tablet, Chewable as directed Orally levoFLOXacin (LEVAQUIN) 500 mg tabletIndications :Prostatitis, unspecified prostatitis type Take 1 Tablet (500 mg) by mouth daily. 90 Tablet 04/26/2025 acetaminophen (TYLENOL) 500 mg tablet Take 1 Tablet (500 mg) by mouth every 6 hours as needed for Pain, Break-Through or Pain, Mild / Temperature. 30 Tablet 04/10/2025 phenazopyridine 200 mg tablet Take 1 Tablet (200 mg) by mouth 3 times daily as needed for Pain (bladder spasm). 20 Tablet 04/10/2025 tamsulosin (FLOMAX) 0.4 mg capsule Take 2 Capsules (0.8 mg) by mouth daily after supper. 60 Capsule 2 04/10/2025 lisinopriL (PRINIVIL) 20 mg tablet Take 1 Tablet (20 mg) by mouth daily. 30 Tablet 2 04/13/2025 oxyCODONE (ROXICODONE) 5 mg tabletIndications :S/P total knee arthroplasty, right Take 1 Tablet (5 mg) by mouth every 8 hours as needed for Pain, Moderate. Max Daily Amount: 15 mg 28 Tablet 02/08/2025 tiZANidine (ZANAFLEX) 4 mg Tablet Take 1 Tablet (4 mg) by mouth daily at bedtime. 30 Tablet 01/11/2025 9:07 AM CDT 01/11/2025 DULoxetine (Cymbalta) 30 mg Capsule, Delayed Release(E.C.) Take 1 Capsule (30 mg) by mouth daily. 42 Capsule 01/11/2025 9:07 AM CDT 01/10/2025 tranexamic acid (LYSTEDA) 650 mg Tablet tablet Take 3 Tablets (1,950 mg) by mouth daily at bedtime. 9 Tablet 01/11/2025 9:07 AM CDT 01/10/2025 polyethylene glycol 3350 (MIRALAX) 17 gram/dose Powder Take 1 Scoop (17 Grams) by mouth daily. Mix in liquid and drink as directed. 510 Gram 01/11/2025 9:07 AM CDT 01/10/2025 aspirin (CHELSEY) 81 mg Tablet Take 81 mg by mouth daily with breakfast. docusate sodium (COLACE) 100 mg capsule Take 1 Capsule (100 mg) by mouth 2 times daily. 60 Capsule 2024 atorvastatin (LIPITOR) 40 mg tablet Take 40 mg by mouth daily. 08/06/2024 multivitamin (DAILY-JEAN) tablet Take 1 Tablet by mouth daily. amLODIPine (NORVASC) 5 mg tablet Take 1 Tablet by mouth daily. 05/15/2024 documented as of this encounter Plan of Treatment Upcoming Encounters Date Type Department Care Team (Late st Contact Info) Description 05/24/2025 9:00 AM DISH MACHINE OPERATOR Office Visit [facility] [address] [place] [address] Mini Don FNP [address] [place] [address] [address] [place] [address] documented as of this encounter Procedures Procedure Name Priority Date/Time Associated Diagnosis Comments CT ABDOMEN PELVIS W CONTRAST Stat 04/27/2025 4:27 PM CDT Abdominal pain, RLQ Prostatitis, unspecified prostatitis type Hydronephrosis, unspecified hydronephrosis type documented in this encounter Results * [...] without evidence of diverticulitis. 5. Cholelithiasis. Mini Man Law SR. DIRECTOR PRODUCT MANAGEMENT CT ORDERABLES Final Resu lt documented in this encounter Visit Diagnoses Diagnosis Abdominal pain, RLQ Abdominal pain, right lower quadrant Prostatitis, unspecified prostatitis type Hydronephrosis, unspecified hydronephrosis type documented in this encounter Administered Medications Inactive Administered Medications - up to 3 most recent administrations Medication Order MAR Action Action Date Dose Rate Site iopamidoL (ISOVUE-300) 61% injection (single-use vial) 100 mL 100 mL, IV, INTRA-PROCEDURE ONCE, 1 dose, Starting on Wed04/27/25 at 1626, Until 04/27/25 at 1626, Routine Contrast Given 04/27/2025 4:26 PM CDT 100 mL sodium chloride bacteriostatic 0.9 % injection 10 mL 10 mL, IV, SEE ADMIN INSTRUCTIONS, Starting on 04/27/25 at 1626, Until 04/28/25 at 0243, Routine Given 04/27/2025 4:26 PM CDT 10 mL documented in this encounter Care Teams Pasta Maker Relationship Specialty Start Date End Date Rcihmond Rogel MD [address] [place] [phone] PCP - General Family Practice 04/07/25 documented as of this encounter
[2025-04-30 06:04] VITALS: BP 175/95; PULSE 100; RESP 16; TEMP 36.3; O2SAT 96; BMI 38.4
--- OUTSIDE RECORDS SUMMARY | 2025-04-30 06:04 | XMS_ITS | Encounter Summary ---
Author Organization [facility] Address [address] [place] [address] Care Team Providers Care Skip Hoist Engineer Name Role Phone Unavailable Primary Care Provider Unavailabl e Encounter Details Date Type Department Care Team (Latest Contact Info) Description 02/21/2002 Outpatient [facility] Internal Medicine and Pediatrics-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
--- OUTSIDE RECORDS SUMMARY | 2025-04-30 06:04 | XMS_ITS | Encounter Summary ---
Author Organization [facility] Address [address] [place] [address] Care Team Providers Care Mail Rider Name Role Phone Unavailable Primary Care Provider Unavailabl e Encounter Details Date Type Department Care Team (Latest Contact Info) Description 06/07/2003 [facility] [address] [place] [phone] Hari Hernandez MD NO ADDRESS ON FILE BENIGN IRENA SKIN FACE NEC (Primary Dx) Social History Tobacco Use Types Packs/Day Years Used Date Smoking Tobacco: Never Assessed Sex and Gender Information Value Date Recorded Sex Assigned at Not on file Legal Sex Male 5:15 AM OCCUPATIONAL NURSE Gender Identity Not on file Sexual Orientation Not on file documented as of this encounter Plan of Treatment Not on file documented as of this encounter Visit Diagnoses Diagnosis Benign neoplasm of skin of other and unspecified parts of face- Primary documented in this encounter
--- OUTSIDE RECORDS SUMMARY | 2025-04-30 06:04 | XMS_ITS | Encounter Summary ---
Author Organization [facility] Address [address] [place] [address] Care Team Providers Care City Assessor Name Role Phone Unavailable Primary Care Provider Unavailabl e Encounter Details Date Type Department Care Team (Latest Contact Info) Description 11/08/2001 Outpatient [facility] Internal Medicine and Pediatrics-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
--- OUTSIDE RECORDS SUMMARY | 2025-04-30 06:04 | XMS_ITS | Clinical Summary ---
Author Organization [facility] Address [address] [place] [address] Phone Care Team Providers Care Hand Iii Cutter Name Role Phone Unavailable Primary Care Provider Unavailabl e Allergies No known active allergies Medications lisinopril-hydro chlorothiazide (ZESTORETIC) 20-12.5 mg Oral tablet Take 1 Tab by mouth daily. 30 Tab 0 05/09/2010 Active metoprolol succinate ER 24 hour (TOPROL-XL) 25 mg Oral tablet Take 25 mg by mouth daily. Active pravastatin (PRAVACHOL) 40 mg Oral tablet Take 40 mg by mouth Daily LATE. Active Active Problems Problem Noted Date Diagnosed Date Migraine aura without headache (migraine equival ents) 07/02/2009 Hypertension 05/31/2009 Obesity 05/31/2009 Immunizations Immunization Administration Dates Next Due Hepatitis A Vaccine 08/28/2003 Hepatitis B Vaccine 08/28/2003 IPV/OPV 08/28/2003 Family History Medical History Relation Name Comments Cancer Brother Healthy Daughter Cancer Father Cataract Father Diabetes Father Heart Disease Father Cancer Mother Diabetes Mother Cancer Sister Healthy Son Relation Name Status Comments Brother Daughter Father Mother Sister Son Social History Tobacco Use Types Packs/Day Years Used Date Smoking Tobacco: Never Alcohol Use Standard Drinks/Week Comments No 0 (1 standard drink = 0.6 oz pur e alcohol) Sex and Gender Information Value Date Recorded Sex Assigned at Not on file Legal Sex Male 5:15 AM DAILY RELEASE AND DUPE PRINTER Gender Identity Not on file Sexual Orientation Not on file Last Filed Vital Signs Vital Sign Reading Time Taken Comments Blood Pressure 140/90 09/12/2010 9:35 AM DAILY RELEASE AND DUPE PRINTER Pulse 96 09/12/2010 9:35 AM DAILY RELEASE AND DUPE PRINTER Temperature 36.3 C (97.3 F) 07/02/2009 8:34 AM DAILY RELEASE AND DUPE PRINTER Respiratory Rate 20 02/10/2009 10:47 AM CDT Oxygen Saturation 98% 09/12/2010 9:35 AM DAILY RELEASE AND DUPE PRINTER Inhaled Oxygen Concentration - - Weight 127.5 kg (281 lb) 09/12/2010 9:35 AM DAILY RELEASE AND DUPE PRINTER Height 172.7 cm (5' 8 ) 09/12/2010 9:35 AM DAILY RELEASE AND DUPE PRINTER Body Mass Index 42.73 09/12/2010 9:35 AM DAILY RELEASE AND DUPE PRINTER Plan of Treatment Health Maintenance Due Date Last Done Comments DTAP/TDAP/TD VACCINES (1 - Tdap) 1982 COLORECTAL SCREENING 2008 Colorectal Cancer Screening 2008 FIT-DNA Q 3 years 2008 FIT/FOBT Q 1 year 2008 Flex Sig/CT Colonography Q 5 years 2008 ZOSTER VACCINE (1 of 2) 2013 INFLUENZA VACCINE (#1) 2025 RSV VACCINE (60+ or ) (1 - 1-dose 75+ series) 2038 Insurance [employer] OPEN ACCESS
--- OUTSIDE RECORDS SUMMARY | 2025-04-30 06:04 | XMS_ITS | Encounter Summary ---
Author Organization [facility] Address [address] [place] [address] Care Team Providers Care Customer Care Professional Name Role Phone Unavailable Primary Care Provider Unavailabl e Encounter Details Date Type Department Care Team (Late st Contact Info) Description 07/27/2003 Outpatient Historical [facility] [address] [place] [address] [address] 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
--- OUTSIDE RECORDS SUMMARY | 2025-04-30 06:04 | XMS_ITS | Encounter Summary ---
Author Organization [facility] Address [address] [place] [address] Care Team Providers Care Senior Database Administrator Name Role Phone Unavailable Primary Care Provider Unavailabl e Encounter Details Date Type Department Care Team (Latest Contact Info) Description 11/23/2001 Outpatient Historical [facility] Internal Medicine and Pediatrics-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
--- OUTSIDE RECORDS SUMMARY | 2025-04-30 06:04 | XMS_ITS | Encounter Summary ---
Author Organization [facility] Address [address] [place] [address] Care Team Providers Care Senior Geologist Name Role Phone Unavailable Primary Care Provider Unavailabl e Encounter Details Date Type Department Care Team (Latest Contact Info) Description 06/07/2003 Outpatient [facility] Dermatology- [facility] [address] [place] [address] Hari Hernandez MD NO ADDRESS ON FILE HEMORRHAGE NOS (Primary Dx); SEBORRHEIC KERATOSIS NOS; Benign annette skin trunk; Benign annette skin arm Social History Tobacco Use Types Packs/Day Years Used Date Smoking Tobacco: Never Assessed Sex and Gender Information Value Date Recorded Sex Assigned at Not on file Legal Sex Male 5:15 AM ANIMAL BEHAVIOURIST Gender Identity Not on file Sexual Orientation Not on file documented as of this encounter Plan of Treatment Not on file documented as of this encounter Visit Diagnoses Diagnosis Hemorrhage, unspecified- Primary Other seborrheic keratosis Benign annette skin trunk Benign neoplasm of skin of trunk, except scrotum Benign annette skin arm Benign neoplasm of skin of upper limb, including shoulder documented in this encounter
--- OUTSIDE RECORDS SUMMARY | 2025-04-30 06:05 | XMS_ITS | Encounter Summary ---
Author Organization [facility] Address [address] [place] [address] Care Team Providers Care Billing Clinician Name Role Phone Richmond Rogel MD Primary Care Provider [phone] Reason for Visit * Reason Onset Date Comments CT results 04/27/2025 See result note Encounter Details Date Type Department Care Team (Late st Contact Info) Description 04/27/2025 Results Follow-Up [facility] Urology [address] [place] [phone] [facility] [address] [place] [address] CT ABDOMEN PELVIS W CONTRAST Social History Tobacco Use Types Packs/Day Years [...] Sex Assigned at Male 07/06/2024 3:06 PM GAS GENERATOR OPERATOR Legal Sex Male 4:52 PM GAS GENERATOR OPERATOR Gender Identity Male 07/06/2024 3:06 PM GAS GENERATOR OPERATOR Sexual Orientation Not on file documented as of this encounter Plan of Treatment Upcoming Encounters Date Type Department Care Team (Late st Contact Info) Description 05/24/2025 9:00 AM GAS GENERATOR OPERATOR Office Visit [facility] [address] [place] [phone] Mini Don FNP [address] [place] [address] [address] [place] [address] documented as of this encounter Visit Diagnoses Not on filedocumented in this encounter Care Teams Billing Clinician Relationship Specialty Start Date End Date Richmond Rogel MD [address] [place] [phone] PCP - General Family Practice 04/07/25 documented as of this encounter
--- OUTSIDE RECORDS SUMMARY | 2025-04-30 06:05 | XMS_ITS | Encounter Summary ---
Author Organization [facility] Address [address] [place] [address] Care Team Providers Care Ceramic Tiler Name Role Phone Unavailable Primary Care Provider Unavailabl e Encounter Details Date Type Department Care Team (Late st Contact Info) Description 08/06/2003 Outpatient Historical [facility] Medicine [address] [place] [address] Dr. L[address]pez [address] [place] [phone] Alec Amaya MD [address] [place] [address] [place] [phone] ACUTE SINUSITIS NOS (Primary Dx); ACUTE BRONCHITIS Social History Tobacco Use Types Packs/Day Years Used Date Smoking Tobacco: Never Assessed Sex and Gender Information Value Date Recorded Sex Assigned at Not on file Legal Sex Male 5:15 AM ASSISTANT BUYER Gender Identity Not on file Sexual Orientation Not on file documented as of this encounter Plan of Treatment Not on file documented as of this encounter Visit Diagnoses Diagnosis Acute sinusitis, unspecified- Primary Acute bronchitis documented in this encounter
--- OUTSIDE RECORDS SUMMARY | 2025-04-30 06:05 | XMS_ITS | Patient Health Record ---
Author Organization [facility] Address [address] [place] [address] Care Team Providers Care Teletypewriter Installer Name Role Phone Richmond Rogel Primary Care Provider Richmond Welch Unavailable [phone] Jordana Palacios Unavailable Allergies Allergen (clinical drug ingredient) Drug/Non Drug Allergy documented on EMR Reaction Allergy Type Onset Date Status amoxicillin Amoxicillin nausea and vomiting Drug Allergy Active Results Component Value Reference Range Notes UA Without [place], [place] - [id number] Reviewed date:12/26/2024 01:56:10 PM Interpretation: Performing Lab: Notes/Report: Glucose 0 Bili 0 Ketones 0 Sp [place] 1.015 Blood 0 pH 6.0 Protein 0 Urobili 0 Nitrites 0 Leukocytes 0 UA Without Micro-[place], [place] - [id number] Reviewed date:05/24/2024 11:33:44 AM Interpretation: Performing Lab: Notes/Report: Glucose 0 Bili 0 Ketones 0 Sp [place] 1.015 Blood 0 pH 6.0 Protein 0 Urobili 0 Nitrites 0 Leukocytes 0 Reason For Referral No Information Medications Medication SIG (Take, Route, Frequency, Duration) Notes Start Date End Date Status Lisinopril-hydroCHLOROthiazi de 20-12.5 MG Tablet Oral; Duration: 90 Days Active Tamsulosin HCl 0.4 MG Capsule TAKE 1 CAPSULE BY MOUTH EVERY DAY FOR 30 DAYS; Duration: 30 Active Clopidogrel Bisulfate 75 MG Tablet Oral; Duration: 90 Days Active Hydroxychloroquine Sulfate 200 MG Tablet Oral; Duration: 90 Days Active Aspirin 81 81 MG Tablet Delayed Release 1 tablet Orally Once a day Active Multivitamin - Tablet 1 tablet Orally On ce a day Active amLODIPine Besylate 5 MG Tablet Oral; Duration: 90 Days Active Atorvastatin Calcium 40 MG Tablet Oral; Duration: 90 Days Active predniSONE 20 MG Tablet Oral; Duration: 7 Days Active Not-Taking Probiotic - Tablet Chewable as directed Orally Active Social History Tobacco Use: Social History Observation Description Date Details (start date - stop date) Never Smoker NA - NA Social History Drugs/Alcohol: Social Info Question Answer Notes Caffeine Intake: 2-3 cups per day Tobacco Use: Social Info Question Answer Notes Tobacco Control (Standard) Tobacco use: Nonsmoker Additional Details Category Social Info Options Details Drugs/Alcohol: Do you drink alcohol? No Section Notes: caffeine- pos alcohol- neg Problems Problem Type SNOMED Code ICD Code Onset Dates Problem Status W/U Status Risk Notes Problem Elevated PSA (556102857) Elevated PSA (R97.20) Active confirmed Problem Urgent desire to urinate (82472323) Urinary urgency (R39.15) Active confirmed Problem Benign prostatic hypertrophy with outflow obstruction (905151481) BPH loc w urin obs/LUTS (N40.1) Active confirmed Vital Signs Heart Rate 77 /min 12/26/2024 Temperature 98.69 degrees Fahrenheit 12/26/2024 Blood pressure diastolic 85 mm Hg 12/26/2024 Height-cm 175.26 cm 12/26/2024 Weight-kg 121.93 kg 12/26/2024 Height 69 in 12/26/2024 Blood pressure systolic 137 mm Hg 12/26/2024 Weight 268.8 lbs 12/26/2024 BMI 39.69 kg/m2 12/26/2024 Encounters Encounter Location Date Provider Diagnosis [facility] [address] [place] [address] [place] [address] 05/24/2024 Jordana Palacios Urinary urgency R39.15 and Elevated PSA R97.20 [facility] [address] [place] [address] [place] [address] 12/26/2024 Jordana Palacios BPH loc w urin obs/LUTS N40.1 ; Elevated PSA R97.20 and Urinary urgency R39.15 [facility] [address] [place], [place] [address]S[place] [address] 05/24/2024 Jordana Palacios Elevated PSA R97.20 [facility] [address] [place] [address] [place] [address] 06/07/2024 Richmond Key Elevated PSA R97.20 [facility] [address] [place] [address] 11/22/2024 Richmond Key [facility] [address] [place] [address] 12/26/2024 Jordana Palacios Elevated PSA R97.20 [facility] [address] [place] [address] 12/19/2024 Jordana Palacios Assessments Encounter Date Diagnosis (ICD Code) Assessment Notes Treatment Notes Treatment Clinical Notes Section Notes 06/07/2024 Elevated PSA (ICD-10 - R97.20) 12/26/2024 Elevated PSA (ICD-10 - R97.20) PSA HAS RETURNED TO NORMAL PLAN - PATIENT TO HAVE TO HAVE FOLLOW UP IN 12 MONTHS WITH PSA, UA, PVR, [place]. WITH ME PATIENT MAY REQUEST COPY OF LAB ORDER IF THEY WISH TO HAVE LABS DRAWN AT THEIR OWN PCP OFFICE. 12/26/2024 BPH loc w urin obs/LUTS (ICD-10 - N40.1) PLAN - CONTINUE TO TAKE MEDICATION PRESCRIBED. 12/26/2024 Elevated PSA (ICD-10 - R97.20) 05/24/2024 Elevated PSA (ICD-10 - R97.20) 05/24/2024 Elevated PSA (ICD-10 - R97.20) Education about PSA Notes: When educating patients about PSA (Prostate-Specific Antigen) testing, it's important to cover several rausch points: What is PSA? PSA is a protein produced by both normal and malignant cells of the prostate gland. The PSA test measures the level of PSA in a man's blood. Purpose of the PSA Test: The PSA test is primarily used to screen for prostate cancer. It can also help monitor patients who have been diagnosed with prostate cancer to assess the effectiveness of treatment or check for recurrence. Interpreting PSA Levels: Elevated PSA levels can indicate prostate cancer, but they can also be caused by other conditions such as benign prostatic hyperplasia (BPH) or prostatitis. Therefore, a high PSA level does not necessarily mean cancer. Benefits of PSA Testing: Early detection of prostate cancer, which can lead to early treatment and potentially better outcomes. Monitoring the progression of prostate cancer in patients who have already been diagnosed. Risks and Limitations: False positives: Elevated PSA levels can lead to unnecessary anxiety and additional tests, such as biopsies, which have their own risks. False negatives: Normal PSA levels do not completely rule out prostate cancer. Overdiagnosis and overtreatment: Some prostate cancers detected by PSA testing may be slow-growing and not life-threatening, leading to treatments that may not be necessary and can have significant side effects. Who Should Get Tested: Men aged 50 and older are generally considered for PSA testing, but those with higher risk factors (e.g., family history of prostate cancer, men) may start earlier, around age 40-45. Shared Decision-Making: Encourage patients to discuss the potential benefits and risks of PSA testing with their healthcare provider to make an informed decision based on their individual risk factors and preferences. By providing comprehensive information, patients can better understand the role of PSA testing in prostate cancer screening and management. 05/24/2024 Urinary urgency (ICD-10 - R39.15) Currently taking tamsulosin 12/26/2024 Urinary urgency (ICD-10 - R39.15) PLAN - CONTINUE TAKING MEDICATIONS PRESCRIBED. IF YOU NOTICE THEY ARE NOT WORKING WELL, PLEASE CONTACT THE OFFICE. 12/26/2024 Other PATIENT TO HAVE TO HAVE FOLLOW UP IN 12 MONTHS WITH PSA, UA, PVR, [place]. WITH ME Plan Of Treatment Pending Test Test Name Order Date PSA Diagnostic--[id number] 04/06/2024 PSA Diagnostic--47767 05/24/2024 Future Test Test Name Order Date PSA Diagnostic--[id number] 10/17/2024 PSA Diagnostic--[id number] 12/17/2025 Next Appt Details Provider Name:Jordana Sarabia, 12/27/2025 03:00:00 PM, [address], [place], [address], Insurance Providers Payer Name Payer Address Payer Phone Subscriber Number Group Number Insured Name Patient Relationship to Insured Coverage Start Date Coverage End Date [employer] [address] [address] [place] [phone] [id number] CHARU RIVAS Self - patient is the insured Medical (General) History Medical History History ICD Code HTN High Cholesterol Pre-Diabetic Heart stent Rheumatoid Arthrits Non-Active TB [place] Spotted Fever Surgical History Surgery Date(Month/Year) total knee replacement (left) 2024 Heart stent Left Knee scope
--- OUTSIDE RECORDS SUMMARY | 2025-04-30 06:05 | XMS_ITS | Encounter Summary ---
Author Organization [facility] Address [address] [place] [address] Care Team Providers Care Security Sales Manager Name Role Phone Unavailable Primary Care Provider Unavailabl e Encounter Details Date Type Department Care Team (Latest Contact Info) Description 10/29/2003 Outpatient Historical [facility] Medicine [address] [place] [address] Dr. 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
--- OUTSIDE RECORDS SUMMARY | 2025-04-30 06:05 | XMS_ITS | Encounter Summary ---
Author Organization [facility] Address [address] [place] [address] Care Team Providers Care Heat Treat Furnace Operator Name Role Phone Unavailable Primary Care Provider Unavailabl e Encounter Details Date Type Department Care Team (Latest Contact Info) Description 08/28/2003 Outpatient Historical [facility] [address] [place] [phone] Jesus Degroot, Ruiz Saleem MD [address] [place] [address] Routine medical exam (Primary Dx) Social History Tobacco Use Types Packs/Day Years Used Date Smoking Tobacco: Never Assessed Sex and Gender Information Value Date Recorded Sex Assigned at Not on file 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
--- OUTSIDE RECORDS SUMMARY | 2025-04-30 06:05 | XMS_ITS | Encounter Summary ---
Author Organization [facility] Address [address] [place] [address] Care Team Providers Care Canine Enforcement Officer Name Role Phone Richmond Rogel MD Primary Care Provider Reason for Visit * Reason Onset Date Comments Suprapubic Pain 04/23/2025 Encounter Details Date Type Department Care Team (Late st Contact Info) Description 04/23/2025 Telephone [facility] [place] [address] [place] [phone] Ulices Haynes MD [address] [place] [address] Suprapubic Pain Social History Tobacco Use Types Packs/Day Years [...] Sex Assigned at Male 07/06/2024 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 This RN called pt back to let himknow. He verbalized understanding. Was able to get him scheduled for 04/26/25 at 1430. * Telephone Encounter - Saulo Aaron RN - 04/23/2025 10:06 AM CDT Pt calling in to give update. He stated that after he had his catheter replaced on he started running a low grade fever on Wednesday and through the weekend. He also states that he was having lower abdominal pain, pain in the rectum, and pain in the testicles. Pt states that his urine color is the best it has looked since having a catheter in place. Pt's pain is not as bad as it was yesterday and over the weekend. Pt states that the nurse only note by Sneha states that the pt will returnto clinic for a cysto. This RN will send to Dr. Haynes's LEVEL VIAL INSIDE GRINDER to advise. documented in this encounter Plan of Treatment Upcoming Encounters Date Type Department Care Team (Late st Contact Info) Description 05/24/2025 9:00 AM SCHOOL AGE PROGRAM TEACHER Office Visit [facility] [address] [place] [phone] Mini Don FNP [address] [place] [address] [place] [phone] documented as of this encounter Visit Diagnoses Not on filedocumented in this encounter Care Teams Canine Enforcement Officer Relationship Specialty [place] [address] [place] [phone] PCP - General Family Practice 04/07/25 documented as of this encounter
--- OUTSIDE RECORDS SUMMARY | 2025-04-30 06:05 | XMS_ITS | Clinical Summary ---
Author Organization [facility] Address [address] [facility] Attn: [place] [address] Care Team Providers Care Strategic Planning Director Name Role Phone Richmond Rogel MD Primary Care Provider [phone] Allergies Active Allergy Reactions Criticality Noted Date Comments Amoxicillin Nausea and Vomiting Low 07/06/2024 Medications amLODIPine (NORVASC) 5 mg tablet Take 1 Tablet by mouth daily. 05/15/20 24 Active atorvastatin (LIPITOR) 40 mg tablet Take 40 mg by mouth daily. 08/06/19 25 Active multivitamin (DAILY-JEAN) tablet Take 1 Tablet by mouth daily. Active docusate sodium (COLACE) 100 mg capsule Take 1 Capsule (100 mg) by mouth 2 times daily. 60 Capsule 08/18/19 25 Active Additional Information Patient not taking.Reported on 04/26/2025 aspirin (CHELSEY) 81 mg Tablet Take 81 mg by mouth daily with breakfast. Active DULoxetine (Cymbalta) 30 mg Capsule, Delayed Release(E.C.) Take 1 Capsule (30 mg) by mouth daily. 42 Capsule 5 9:07 AM CDT 01/11/20 25 Active Additional Information Patient not taking.Reported on 04/26/2025 tranexamic acid (LYSTEDA) 650 mg Tablet tablet Take 3 Tablets (1,950 mg) by mouth daily at bedtime. 9 Tablet 5 9:07 AM CDT 01/11/20 25 Active Additional Information Patient not taking.Reported on 04/26/2025 polyethylene glycol 3350 (MIRALAX) 17 gram/dose Powder Take 1 Scoop (17 Grams) by mouth daily. Mix in liquid and drink as directed. 510 Gram 5 9:07 AM CDT 01/11/20 Active tiZANidine (ZANAFLEX) 4 mg Tablet Take 1 Tablet (4 mg) by mouth daily at bedtime. 30 Tablet 5 9:07 AM CDT 01/12/20 Active Additional Information Patient not taking.Reported on 04/26/2025 oxyCODONE (ROXICODONE) 5 mg tabletIndicati ons:S/P total knee arthroplasty, right Take 1 Tablet (5 mg) by mouth every 8 hours as needed for Pain, Moderate. Max Daily Amount: 15 mg 28 Tablet 02/09/20 Active Additional Information Patient not taking.Reported on 04/26/2025 acetaminophen (TYLENOL) 500 mg tablet Take 1 Tablet (500 mg) by mouth every 6 hours as needed for Pain, Break-Through or Pain, Mild / Temperature. 30 Tablet 04/10/20 Active phenazopyridin e 200 mg tablet Take 1 Tablet (200 mg) by mouth 3 times daily as needed for Pain (bladder spasm). 20 Tablet 04/10/20 Active Additional Information Patient not taking.Reason: out of presciption, Reported on 04/26/2025 tamsulosin (FLOMAX) 0.4 mg capsule Take 2 Capsules (0.8 mg) by mouth daily after supper. 60 Capsule 2 04/10/20 25 Active lisinopriL (PRINIVIL) 20 mg tablet Take 1 Tablet (20 mg) by mouth daily. 30 Tablet 2 04/13/20 25 Active Bacillus subtilis-inuli n 1.5 billion cell-1 gram Tablet, Chewable as directed Orally Active levoFLOXacin (LEVAQUIN) 500 mg tabletIndicati ons:Prostatiti s, unspecified prostatitis type Take 1 Tablet (500 mg) by mouth daily. 90 Tablet 04/26/20 25 Active clopidogreL (PLAVIX) 75 mg Tablet Take 1 Tablet by mouth daily. 05/15/20 025 Discontinued lisinopril-hyd roCHLOROthiazi de (ZESTORETIC) 20-12.5 mg tablet Take 1 Tablet by mouth daily. 05/15/20 025 Discontinued tamsulosin (FLOMAX) 0.4 mg capsule Take 1 Capsule by mouth daily. 05/06/20 24 025 Discontinued atorvastatin (LIPITOR) 40 mg tablet Take 40 mg by mouth daily at bedtime. 025 Discontinued(D uplicate Therapy) ibuprofen (MOTRIN) 200 mg tablet Take 400 mg by mouth 2 times daily as needed for Pain. 025 Discontinued acetaminophen (TYLENOL) 500 mg tablet Take 1,000 mg by mouth every 8 hours as needed for Pain, Break-Through or Pain, Mild / Temperature. 025 Discontinued acetaminophen (TYLENOL) 500 mg tablet Take 2 Tablets (1,000 mg) by mouth every 8 hours. 90 Tablet 08/18/19 025 Discontinued(D uplicate Therapy) acetaminophen (TYLENOL) 500 mg tablet Take 2 Tablets (1,000 mg) by mouth every 8 hours. 90 Tablet 01/11/20 025 Discontinued(D uplicate Therapy) docusate sodium (COLACE) 100 mg capsule Take 1 Capsule (100 mg) by mouth 2 times daily. 60 Capsule 01/11/20 025 Discontinued(D uplicate Therapy) Active Problems Problem Noted Date Diagnosed Date Gross hematuria 04/09/2025 Cholelithiasis 04/08/2025 Obstructive uropathy 04/07/2025 Bilateral hydronephrosis 04/07/2025 GASPER (acute kidney injury) 04/07/2025 Hypokalemia 04/07/2025 Elevated LFTs 04/07/2025 Enlarged prostate 04/07/2025 Primary osteoarthritis of right knee 12/21/2024 Morbid obesity with body mass index of 40.0-49.9 12/21/2024 Preoperative general physical examination 2024 Primary osteoarthritis of left knee 08/09/2024 CAD (coronary atherosclerotic disease) Dyslipidemia 08/09/2024 Benign prostatic hyperplasia with urinary obstru ction 08/09/2024 KARY (obstructive sleep apnea) 08/09/2024 Prediabetes 08/09/2024 RA (rheumatoid arthritis) 08/09/2024 Migraine aura without headache (migraine equival ents) 07/02/2009 Hypertension 05/31/2009 Resolved Problems Problem Noted Date Diagnosed Date Resolved Date Severe obesity (BMI 35.0-39. 9) with comorbidity 05/31/2009 12/21/2024 Encounters Date Type Department Care Team Description 04/27/2025 3:48 PM CDT - 04/27/2025 11:59 PM CDT Hospital Encounter [facility] CT Scan [place] [address] [place] [address] Mini Don FNP Arrived Discharge Disposition: Home or Self Care 04/27/2025 Results Follow-Up [facility] [address] [place] [address] ABDOMEN PELVIS W CONTRAST 04/26/2025 2:30 PM CDT Office Visit [facility] [address] [place] [address] Mini Don FNP Abdominal pain, RLQ (Primary Dx); Prostatitis, unspecified prostatitis type; BPH with obstruction/lower urinary tract symptoms; History of elevated PSA; Hydronephrosis, unspecified hydronephrosis type 04/23/[address] [place] [address] Ulices Haynes MD Suprapubic Pain 04/19/2025 2:00 PM CDT Clinical Support [facility] [address] [place] [address] Obstructive uropathy (Primary Dx) 04/19/2025 8:00 AM CDT Clinical Support [address] [place] [address] Obstructive uropathy (Primary Dx) 04/10/2025 External Device Data STL ABSTRACTION Provider, Abstract 04/10/2025 External Device Data ST[facility] ABSTRACTION Provider, Abstract 04/10/2025 External Device Data [facility] ABSTRACTION Provider, Abstract 04/10/[address] [place] [address] Ulices Haynes MD Needs Appointment 04/07/2025 9:23 AM CDT - 04/10/2025 1:00 PM CDT Hospital Encounter [facility] [address] [place] [address] Feliberto Anderson DO Virji, MD Pascual Stanley Prabin, MD Obstructive uropathy Discharge Disposition: Home or Self Care 04/07/2025 Travel 03/29/2025 External Device Data Initial Department [address] [facility] [address] [place]: [place] [address] [facility], Md 03/27/2025 External Device Data STL ABSTRACTION Provider, Abstract 03/20/2025 External Device Data STL ABSTRACTION Provider, Abstract 03/07/2025 External Device Data STL ABSTRACTION Provider, Abstract 02/27/2025 External Device Data STL ABSTRACTION Provider, Abstract 02/08/2025 9:00 AM CDT Office Visit [facility] [address] [place] [address] Solis Hussein PA-C Status post right knee replacement (Primary Dx) 02/08/2025 Refill [facility] [address] [place] [address] Shanell Kaminski MD S/P total knee arthroplasty, right 01/31/2025 External Device Data STL ABSTRACTION Provider, Abstract 01/31/2025 External Device Data ST[facility] ABSTRACTION Provider, Abstract from Last 3 Months Immunizations Immunization Administration Dates Next Due (ADACEL/BOOSTRIX)(10 YR UP) TDAP VACCINE, 0.5ML, IM 04/26/2018 (SHINGRIX)(50 YRS UP) ZOSTER VACCINE RECOMBINANT, 0.5 ML, IM 04/18/2024,05/07/2021 Hepatitis A Vaccine 08/28/2003 Hepatitis B Vaccine 08/28/2003 IPV/OPV 08/28/2003 Influenza Seasonal Unspecified Formulation IM Family History Medical History Relation Name Comments Healthy Daughter Cataract Father Diabetes Father Heart Disease Father X3 heart attac ks, bypass Lung Cancer Father Diabetes Mother Lung Cancer Mother Lung Cancer Sister Healthy Son Relation Name Status Comments Daughter Father Mother Sister Son Social History [...] Sex Assigned at Male 07/06/2024 3:06 PM MACERATOR OPERATOR Legal Sex Male 4:52 PM MACERATOR OPERATOR Gender Identity Male 07/06/2024 3:06 PM MACERATOR OPERATOR Sexual Orientation Not on file Last Filed Vital Signs Vital Sign Reading Time Taken Comments Blood Pressure 168/100 04/10/2025 7:14 AM CDT Pulse 92 04/10/2025 7:14 AM CDT Temperature 37.1 C (98.7 F) 04/10/2025 7:14 AM CDT Respiratory Rate 17 04/10/2025 7:14 AM CDT Oxygen Saturation 93% 04/10/2025 7:14 AM CDT Inhaled Oxygen Concentration - - Weight 119.7 kg (264 lb) 04/10/2025 4:39 AM CDT Height 172.7 cm (5' 8 ) 04/07/2025 12:57 PM CDT Body Mass Index 40.14 04/07/2025 12:57 PM CDT Plan of Treatment Upcoming Encounters Date Type Department Care Team (Late st Contact Info) Description 05/24/2025 9:00 AM MACERATOR OPERATOR Office Visit [facility] [address] [place] [address] Mini Don FNP [address] [place] [address] Health Maintenance Due Date Last Done Comments COLORECTAL SCREENING 2008 Colorectal Cancer Screening 2008 FIT-DNA Q 3 years 2008 FIT/FOBT Q 1 year 2008 Flex Sig/CT Colonography Q 5 years 2008 COVID-19 Vaccine (2 - Moderna risk series) 06/04/2021 05/07/2021 RSV VACCINE (60+ or ) (1 - Risk 60-74 years 1-dose series) 2023 INFLUENZA VACCINE (#1) 2025 04/18/2024 Pre-Diabetes and Diabetes Screening 08/09/202708/09 DTAP/TDAP/TD VACCINES (2 - Td or Tdap) 04/26/2028 ZOSTER VACCINE Completed 04/18/2024, 05/07/2021 Medical Devices Implanted Type Area Real Estate Transaction Coordinator Device Identifier Shelf Expiration Date Model / Serial / Lot Cement Palacos Mv Pro 40 Hip Knee Antimicrob [id number] - [id number] Implanted:Qty: 1 on 2024 by Shanell Kaminski MD at [facility] Cement Left: Knee [employer] [id number] 12/16/2026 [id number] / / [id number] Patella Attune Laurita 32mm 1518-10-032 - [id number] Implanted:Qty: 1 on 2024 by Shanell Kaminski MD at [facility] Knee Left: Knee [employer] [id number] 06/17/2029 [id number] / / [id number] Comp Fem Attune Poro Cr Sz 7 Lt Cmntlss 1504-01-107 - [id number] Implanted:Qty: 1 on 2024 by Shanell Kaminski MD at [facility] Knee Left: Knee [employer] [id number] 12/16/2033 [id number] / / [id number] Baseplate Tib Attune Fxd Bearing Sz 7 1506-21-007 - [id number] Implanted:Qty: 1 on 2024 by Shanell Kaminski MD at [facility] Knee Left: Knee [employer] [id number] 11/15/2032 1506--007 / / [id number] Insert Tib Attune Aox Fb Medial Stblzd Sz7 8mm Rt 1520-20-708 - [id number] Implanted:Qty: 1 on 01/10/2025 by Shanell Kaminski MD at [facility] Knee Right: Knee [employer] [id number] 10/16/2032 1520--708 / / [id number] Comp Fem Attune Poro Cr Sz 7 Rt Cmntlss 1504-01-207 - [id number] Implanted:Qty: 1 on 01/10/2025 by Shanell Kaminski MD at [facility] Knee Right: Knee [employer] [id number] 11/15/2034 [id number] / / [id number] Baseplate Tib Attune Fxd Bearing Sz 7 1506-21-007 - [id number] Implanted:Qty: 1 on 01/10/2025 by Shanell Kaminski MD at [facility] Knee Right: Knee [employer] [id number] 11/15/2033 1506-- / / [id number] Ins Tib Attune L Knee 7x6mm Implanted:Qty: 1 on 2024 by Shanell Kaminski MD at [facility] Left: Knee [id number] 04/17/2032 [id number] / / [id number] [employer] Patella 35mm Dome Implanted:Qty: 1 on 01/10/2025 by Shanell Kaminski MD at [facility] Right: Knee 04/17/2032 [id number] 1-035 / / [id number] Procedures Procedure Name Priority Date/Time Associated Diagnosis Comments CT ABDOMEN PELVIS W CONTRAST Stat 04/27/2025 4:27 PM CDT Abdominal pain, RLQ Prostatitis, unspecified prostatitis type Hydronephrosis, unspecified hydronephrosis type COMPREHENSIVE METABOLIC PANEL Routine 04/26/2025 4:08 PM CDT Prostatitis, unspecified prostatitis type CBC WITH DIFFERENTIAL Routine 04/26/2025 4:08 PM CDT Prostatitis, unspecified prostatitis type URINE CULTURE Routine 04/26/2025 3:43 PM CDT Prostatitis, unspecified prostatitis type TELEMETRY REPORT 04/11/2025 3:31 PM CDT TELEMETRY REPORT 04/10/2025 3:53 AM CDT COMPREHENSIVE METABOLIC PANEL Routine 04/09/2025 4:06 AM CDT CBC WITH DIFFERENTIAL Routine 04/09/2025 4:06 AM CDT COMPREHENSIVE METABOLIC PANEL Routine 04/08/2025 4:29 AM CDT CBC WITH DIFFERENTIAL Routine 04/08/2025 4:29 AM CDT POC GLUCOSE Routine 04/07/2025 11:54 PM CDT US ABDOMEN LIMITED Stat 04/07/2025 4: [address] ABDOMEN PELVIS WO CONTRAST Stat 04/07/2025 11:47 AM CDT LACTIC ACID Stat 04/07/2025 11:30 AM CDT BLOOD CULTURE Stat 04/07/2025 11:30 AM CDT BLOOD CULTURE Stat 04/07/2025 11:30 AM CDT BLOOD CULTURE Stat 04/07/2025 11:21 AM CDT BLOOD CULTURE Stat 04/07/2025 11:21 AM CDT MAGNESIUM LEVEL Stat 04/07/2025 10:19 AM CDT TICK-BORNE PANEL, PCR Stat 04/07/2025 10:19 AM CDT COMPREHENSIVE METABOLIC PANEL Stat 04/07/2025 10:19 AM CDT CBC WITH DIFFERENTIAL Stat 04/07/2025 10:19 AM CDT EXTRA TUBE (URINE GARCIA) Stat 04/07/2025 9:52 AM CDT URINALYSIS W/REFLEX MICROSCOPIC Stat 04/07/2025 9:52 AM CDT CRITICAL CARE Routine 04/07/2025 9:13 AM CDT HEMOGLOBIN A1C Routine 08/09/2024 3:19 PM MACERATOR OPERATOR from Last 3 Months or Most Recently Relevant to Health Maintenance Results * CT ABDOMEN PELVIS W CONTRAST [...] of diverticulitis. 5. Cholelithiasis. Mini Man Law PAINTER AIRCRAFT CT ORDERABLES Final Resu lt * (ABNORMAL) CBC WITH DIFFERENTIAL (04/26/2025 4:08 PM CDT) Only the most recent of4 resultswithin the time period is included. WBC 15.3(H) 3.8 - 10.8 Thousand/ uL [...] [place] LYMPHOCYTES 23 % [facility] RRL MONOCYTE 4 % [facility] RRL EOSINOPHILS 5 % [facility] RRL BASOPHILS 0 % [facility] RRL COMMENT HEMATOLOGY [facility] Comment: The smear has been manually reviewed and the manual differential has been reported. Review of the peripheral smear reveals adequate numbers of platelets. Red cell morphology appears unremarkable Slide review performed at: [facility] [place] [address] [place] [address] Hospital Personnel Director: Anibal Cotton [id number] Test Performed at: [facility] [address] [place] [address] Flex Delcid Blood 04/26/2025 4:08 PM CDT 04/26/2025 4:09 PM CDT Mini Don PAINTER AIRCRAFT HEMATOLOGY ORDERABLES Kaela long Result [facility] [phone] [facility] [address] [place] [address] * (ABNORMAL) COMPREHENSIVE METABOLIC PANEL (04/26/2025 4:08 PM CDT) Only the most recent of4 resultswithin the time period is included. GLUCOSE 119(H) 65 - 99 mg/dL [facility] Comment: Fasting reference interval For someone without known diabetes, a glucose value between 100 and 125 mg/dL is consistent with prediabetes and should be confirmed with a follow-up test. BUN 21 7 - 25 mg/dL [facility] CREATININE 0.82 0.70 - 1.35 mg/dL [facility] GFR 100 > OR = 60 mL/min/1. 73m2 [facility] BUN/CREAT RATIO SEE NOTE: 6 - 22 (calc) [facility] Comment: Not Reported: BUN and Creatinine are within reference range. SODIUM 140 135 - 146 mmol/L [facility] [place] RRL POTASSIUM 4.6 3.5 - 5.3 mmol/L [facility] RRL CHLORIDE 105 98 - 110 mmol/L [facility] RRL CO2 24 20 - 32 mmol/L [facility] RRL CALCIUM 10.3 8.6 - 10.3 mg/dL [facility] RRL TOTAL PROTEIN 7.4 6.1 - 8.1 g/dL [facility] RRL ALBUMIN 4.4 3.6 - 5.1 g/dL [facility] RRL GLOBULIN 3.0 1.9 - 3.7 g/dL (calc) [facility] RRL ALBUMIN/GLOBULIN RATIO 1.5 1.0 - 2.5 (calc) [facility] RRL BILIRUBIN TOTAL 0.4 0.2 - 1.2 mg/dL [facility] RRL ALKALINE PHOSPHATASE 85 35 - 144 U/L [facility] RRL AST 21 10 - 35 U/L [facility] RRL ALT 48(H) 9 - 46 U/L [facility] RRL Comment: [facility] [address] [place] [address] Flex Delcid Blood 04/26/2025 4:08 PM CDT 04/26/2025 4:09 PM CDT Mini Don PAINTER AIRCRAFT CHEMISTRY ORDERABLES Final Result [facility] [phone] [facility] [address] [place] [address] * TELEMETRY REPORT (04/11/2025 3:31 PM CDT) Only the most recent of2 resultswithin the time period is included. Provider Scanning ECG ORDERABLES Final Result * (ABNORMAL) POC GLUCOSE (04/07/2025 11:54 PM CDT) [facility] GLUCOSE POC 112(H) 74 - 99 mg/dL 04/07/2025 11:54 PM CDT [facility] SPECIMEN SOURCE, GLUCOSE POC Capillary 04/07/2025 11:54 PM CDT [facility] Blood, whole 04/07/2025 11:5 4 PM CDT 04/08/2025 12:11 AM CDT us Jacinto Reese MD POINT OF CARE TESTING Kaela l Result [facility] CLIA # [id number] [address] [place] [address] * US ABDOMEN LIMITED (04/07/2025 4:44 PM CDT) Anatomical Region Laterality Modality Abdomen Ultrasound 04/07/2025 4:44 PM CDT Impressions 04/07/2025 5:12 PM CDT IMPRESSION: See below. Exam: US ABDOMEN LIMITED Date/Time of Exam: 04/07/2025 4:44 PM Reason For Exam: Elevated LFT's. Diagnosis: Bilateral hydronephrosis; Obstructive uropathy; Enlarged prostate; GASPER (acute kidney injury); Hypokalemia. Comparison: CT of the abdomen and pelvis from 04/07/2025. FINDINGS: Pancreas: The parenchyma is homogeneous without evidence of a discrete mass. Liver: The parenchyma is homogeneous without evidence of a discrete mass. Extrahepatic Bile Ducts: The common duct is normal measuring 6.6 mm in diameter. Gallbladder: There are intraluminal calculi. The gallbladder wall is normal in thickness measuring 3.0 mm. Positive Bertrand's sign: No Right Kidney: The right kidney measures 15.8 cm in length. The renal cortical thickness and echogenicity are within normal limits. There are no focal renal lesions. There is prominent right hydronephrosis. Ascites: None. Additional Findings: None. IMPRESSION: 1. Cholelithiasis without evidence of acute cholecystitis. 2. Prominent right hydronephrosis. Narrative Procedure Note Ta Galdamez, - 04/07/2025 IMPRESSION: See below. Exam: US ABDOMEN LIMITED Date/Time of Exam: 04/07/2025 4:44 PM Reason For Exam: Elevated LFT's. Diagnosis: Bilateral hydronephrosis; Obstructive uropathy; Enlarged prostate; GASPER (acute kidney injury); Hypokalemia. Comparison: CT of the abdomen and pelvis from 04/07/2025. FINDINGS: Pancreas: The parenchyma is homogeneous without evidence of a discrete mass. Liver: The parenchyma is homogeneous without evidence of a discrete mass. Extrahepatic Bile Ducts: The common duct is normal measuring 6.6 mm in diameter. Gallbladder: There are intraluminal calculi. The gallbladder wall is normal in thickness measuring 3.0 mm. Positive Bertrand's sign: No Right Kidney: The right kidney measures 15.8 cm in length. The renal cortical thickness and echogenicity are within normal limits. There are no focal renal lesions. There is prominent right hydronephrosis. Ascites: None. Additional Findings: None. IMPRESSION: 1. Cholelithiasis without evidence of acute cholecystitis. 2. Prominent right hydronephrosis. Jacinto Reese MD ORDERABLES Final Resu lt * CT ABDOMEN PELVIS WO CONTRAST (04/07/2025 11:47 AM CDT) Anatomical Region Laterality Modality Abdomen Computed Tomogra phy 04/07/2025 11:4 7 AM CDT Impressions 04/07/2025 12:03 PM CDT IMPRESSION: 1. Significantly distended urinary bladder with abnormal [...] urinary bladder. 4. Otherwise as above. . Narrative 04/07/2025 12:03 PM CDT EXAM: CT ABDOMEN PELVIS WO CONTRAST DATE/TIME [...] L5 pars interarticularis defect. Additional comments: None. Procedure Note Jay Robin MD - 04/07/2025 EXAM: CT ABDOMEN PELVIS WO CONTRAST DATE/TIME [...] L5 pars interarticularis defect. Additional comments: None. IMPRESSION: 1. Significantly distended urinary bladder with abnormal [...] urinary bladder. 4. Otherwise as above. . us Feliberto Anderson DO CT ORDERABLES Final Result * LACTIC ACID (04/07/2025 11:30 AM CDT) LACTIC ACID 0.7 <=2.0 mmol/L 04/07/2025 12:13 PM CDT [facility] Blood Venipuncture / Unknown 04/07/2025 11:30 AM CDT 04/07/2025 11:36 AM CDT us Feliberto Anderson DO CHEMISTRY ORDERABLES F inal Result Performing Organization Address [facility] Co de Phone Number [facility] CLIA # [id number] [address] [address] * BLOOD CULTURE (04/07/2025 11:30 AM CDT) Only the most recent of2 resultswithin the time period is included. [facility] BLOOD CULTURE No growth 04/12/2025 1:09 PM CDT [facility] Blood (Peripheral) Venipuncture / Unknown 04/07/2025 11:30 AM CDT 04/07/2025 11:36 AM CDT Feliberto Anderson DO MICROBIOLOGY - GENERAL ORDERABLES Final Result Performing Organization Address [facility] Co de Phone Number [facility] CLIA # [id number] On license of [facility] [address] * TICK-BORNE PANEL, PCR (04/07/2025 10:19 AM CDT) [facility] EHRLICHIA EWINGII DNA, QL REAL TIME PCR NOT DETECTED 04/12/2025 6:57 PM CDT [facility] Comment: REFERENCE RANGE: NOT DETECTED This test was developed and its analytical performance characteristics have been determined by [facility]. It has not been cleared or approved by FDA. This assay has been validated pursuant to the CLIA regulations and is used for clinical purposes. BORRELIA MIYAMOTOI PCR NOT DETECTED 04/12/2025 6:57 PM CDT [facility] Comment: REFERENCE RANGE: NOT DETECTED This test detects but does not distinguish between B. miyamotoi and B. hermsii. This test was developed and its analytical performance characteristics have been determined by [facility]. It has not been cleared or approved by FDA. This assay has been validated pursuant to the CLIA regulations and is used for clinical purposes. COMMENT INFECTIOUS DISEASE SEE COMMENT 04/12/2025 6:57 PM CDT [facility] Comment: A negative result does not exclude Borrelia infection as the concentration of the organism in blood may be low or non-existent in patients with Lyme disease, and may depend on timing of specimen collection from onset of symptoms. Clinical correlation is recommended and additional studies such as serologic testing may be indicated. BORRELIA SP, PCR, BLOOD NOT DETECTED 04/12/2025 6:57 PM CDT [facility] Comment: REFERENCE RANGE: NOT DETECTED This test was developed and its analytical performance characteristics have been determined by [facility]. It has not been cleared or approved by FDA. This assay has been validated pursuant to the CLIA regulations and is used for clinical purposes. For additional information, please refer to https://education.Cigital/faq/lbr727 (This link is being provided for informational/ educational purposes only.) EHRLICHIA CHAFFEENSIS PCR NOT DETECTED 04/12/2025 6:57 PM CDT [facility] Comment: REFERENCE RANGE: NOT DETECTED This test was developed and its analytical performance characteristics have been determined by [facility]. It has not been cleared or approved by FDA. This assay has been validated pursuant to the CLIA regulations and is used for clinical purposes. BABESIA MICROTI PCR NOT DETECTED 6:57 PM CDT [facility] Comment: REFERENCE RANGE: NOT DETECTED This test was developed and its analytical performance characteristics have been determined by [employer]. It has not been cleared or approved by FDA. This assay has been validated pursuant to the CLIA regulations and is used for clinical purposes. ANAPLASMA PHAGOCYTOPHILUM PCR NOT DETECTED 04/12/2025 6:57 PM CDT [facility] Comment: REFERENCE RANGE: NOT DETECTED This test was developed and its analytical performance characteristics have been determined by [employer] [facility]. It has not been cleared or approved by FDA. This assay has been validated pursuant to the CLIA regulations and is used for clinical purposes. Blood Venipuncture / Unknown 04/07/2025 10:19 AM CDT 04/07/2025 10:32 AM CDT Narrative [facility] - 04/12/2025 6:57 PM CDT Performing Organization Information: Site ID: EZ Name: [facility], Address: [address] [place] [phone] Director: Mica Bentley MD,PhD,[place] Performing Organization Information: Site ID: EZ Name: [facility], Address: [address] [place] [phone] Director: Mica Bentley MD,PhD,[place] Performing Organization Information: Site ID: EZ Name: [facility], Address: [address] [place] [phone] Director: Mica Bentley MD,PhD,[place] Performing Organization Information: Site ID: EZ Name: [facility], Address: [address] [place] [phone] Director: Mica Bentley MD,PhD,[place] Performing Organization Information: Site ID: EZ Name: [facility], Address: [address] [place] [phone] Director: Mica Bentley MD,PhD,[place] us Feliberto Anderson DO CHEMISTRY ORDERABLES F inal Result Performing Organization Address [facility] Co de Phone Number [facility] * MAGNESIUM LEVEL (04/07/2025 10:19 AM CDT) [facility] Signature MAGNESIUM 2.0 1.6 - 2.4 mg/dL 04/07/2025 2:32 PM CDT [facility] Blood Venipuncture / Unknown 04/07/2025 10:19 AM CDT 04/07/2025 10:34 AM CDT us Jacinto Reese MD CHEMISTRY ORDERABLES Final Result Performing Organization Address [facility] Co de Phone Number [facility] CLIA # [id number] [id number] [address] * EXTRA TUBE (URINE GARCIA) (04/07/2025 9:52 AM CDT) Urine URINE SPECIMEN OBTAINED BY CLEAN CATCH PROCEDURE / Unknown Collection / Unknown 04/07/2025 9:52 AM CDT 04/07/2025 10:08 AM CDT Feliberto Anderson DO URINE ORDERABLES Final Result [facility] CLIA # [id number] [facility] [address] [address] * (ABNORMAL) URINALYSIS WITH REFLEX MICROSCOPIC (04/07/2025 9:52 AM CDT) COLOR UA Colorless(A ) Pale to Dark Yellow 04/07/2025 10:13 AM [facility] CLARITY UA Clear Clear 04/07/2025 10:13 AM [facility] SPECIFIC GRAVITY UA 1.009 1.003 - 1.035 04/07/2025 10:13 AM T [facility] PH UA 6.0 5.0 - 8.0 04/07/2025 10:13 AM [facility] LEUKOCYTE ESTERASE UA Negative Negative 04/07/2025 10:13 AM [facility] NITRITE UA Negative Negative 04/07/2025 10:13 AM T [facility] PROTEIN UA Negative Negative 04/07/2025 10:13 AM T [facility] GLUCOSE UA Negative Negative 04/07/2025 10:13 AM T [facility] KETONES UA Negative Negative 04/07/2025 10:13 AM [facility] UROBILINOGEN UA <2.0 <2.0 mg/dL 10:13 AM [facility] BILIRUBIN UA Negative Negative 04/07/2025 10:13 AM [facility] BLOOD UA Negative Negative 04/07/2025 10:13 AM CDT [facility] Urine URINE SPECIMEN OBTAINED BY CLEAN CATCH PROCEDURE / Unknown Collection / Unknown 04/07/2025 9:52 AM CDT 04/07/2025 10:08 AM CDT Feliberto Anderson DO URINE ORDERABLES Final Result [facility] CLIA # [id number] [address] [address] [place] [address] * Critical Care (04/07/2025 9:13 AM CDT) Narrative Feliberto Anderson DO - 04/07/2025 9:13 AM CDT Feliberto Anderson DO 04/07/2025 12:38 PM Critical Care Performed by: Feliberto Anderson DO Authorized by: Feliberto Anderson DO Critical care provider statement: Critical care time (minutes): 36 Critical care was necessary to treat or prevent imminent or life-threatening deterioration of the following conditions: Renal failure Critical care was time spent personally by me on the following activities: Ordering and performing treatments and interventions, ordering and review of laboratory studies, ordering and review of radiographic studies, re-evaluation of patient's condition, review of old charts, discussions with consultants, discussions with primary provider, development of treatment plan with patient or surrogate, evaluation of patient's response to treatment, examination of patient and obtaining history from patient or surrogate us Feliberto Anderson DO PROCEDURE/MINOR SURGIC AL ORDERABLES Final Result * HEMOGLOBIN A1C (08/09/2024 3:19 PM MACERATOR OPERATOR) HEMOGLOBIN A1C 5.2 <=5.6 % 08/09/2024 3:33 PM MACERATOR OPERATOR [facility] EST. AVG GLUCOSE, A1C 103 mg/dL 08/09/2024 3:33 PM MACERATOR OPERATOR [facility] Blood Venipuncture / Unknown 08/09/2024 3:19 PM MACERATOR OPERATOR 08/09/2024 3:19 PM MACERATOR OPERATOR Narrative [facility] - 08/09/2024 3:33 PM MACERATOR OPERATOR HGB A1C INTERPRETATION NORMAL: <5.7% PRE-DIABETES: 5.7 - 6.4% DIABETES: 6.5% OR GREATER us Ryan Porter MD CHEMISTRY ORDERABLES Final Resu lt [facility] CLIA #[id number] [address] [place] [address] from Last 3 Months or Most Recently Relevant to Health Maintenance Insurance [employer]act Public Safety [facility] Fluid [id number] RX [facility] [employer] Advance Directives For more information, please contact: [phone] * Full Code (Latest Code Status on File) Date Activated Date Inactivated Comments 04/07/2025 2:14 PM 04/10/2025 3:01 PM * Default Full Code - Needs Discussion Date Activated Date Inactivated Comments 01/10/2025 9:31 AM 01/11/2025 12:13 PM * Default Full Code - Needs Discussion Date Activated Date Inactivated Comments 01/10/2025 5:37 AM 01/10/2025 9:31 AM * Default Full Code - Needs Discussion Date Activated Date Inactivated Comments 2024 11:38 AM 08/19/2024 12:42 PM * Full Code Date Activated Date Inactivated Comments 2024 7:51 AM 2024 11:38 AM Care Teams Strategic Planning Director Relationship Specialty Start Date End Date Richmond Rogel MD [address] [place] [id number] PCP - General Family Practice 04/07/25
--- NOTE | 2025-04-30 06:17 | ED_ITS ---
HPI - Male Genitourinary 2 General: Chief complaint: Urogenital-Male Stated complaint: Cath issues Time Seen by Provider: 04/30/25 06:08 History of Present Illness: 59-year-old male presents emergency room complaining of abdominal pain difficulty with his catheter. He was recently found to have a prostatitis because of bladder outlet nausea and a Kelly was placed. His Kelly is not been draining well and has had increasing abdominal pain presented to the emergency room concerned about function of the Kelly. He had seen urology he relates that he had both kidney and liver laboratory abnormalities. They are treating him for prostatitis he is on 90 days of levofloxacin. Associated symptoms: Reports nausea Related Data Home Medications ?Medication ?Instructions ?Recorded ?Confirmed multivitamin 1 tab PO DAILY 02/01/2303/21 acetaminophen 500 mg tablet 1,000 mg PO BID 05/10/24 0 04/17/25 (Tylenol Extra Strength) lisinopril 20 mg tablet 20 mg PO QDAY 04/17/2504/17 Previous Rx's ?Medication ?Instructions ?Recorded amlodipine 5 mg tablet See Rx Instructions .Route 0 10/30/24 .COMPLEX #90 tabs atorvastatin 40 mg tablet See Rx Instructions .Route 0 10/30/24 .COMPLEX #90 tabs clopidogrel 75 mg tablet See Rx Instructions .Route 0 10/30/24 .COMPLEX #90 tabs hydroxychloroquine 200 mg tablet 400 mg (2 x 200 mg) P O DAILY #180 11/28/24 tabs prednisone 20 mg tablet See Rx Instructions PO .COMP AGUSTINA 12/07/24 PRN joint pain flare #30 tabs tamsulosin 0.4 mg capsule (Flomax) 0.4 mg PO DAILY #90 caps 12/18/24 Allergies Allergy/AdvReac Type Severity Reaction Status Date / Time amoxicillin Allergy Intermediate unknown Verified 11/28/24 11:32 Review of Systems 2 Const: Denies: fever(s) or chills Card: Denies: chest pain Resp: Denies: dyspnea GI: Reports: abdominal pain and nausea : Reports: difficulty urinating Musc: Denies: neck pain or back pain Skin/Breast: Denies: rash PFSH ED 2 PFSH: Medical History Seronegative rheumatoid arthritis of both hands Immunization counseling High risk medication use Inflammatory arthritis CAD (coronary artery disease), [place] coronary artery Sleep disorder KARY on CPAP Lung nodule Atherosclerotic heart disease Hypertension Hyperlipidemia Diabetes Surgical History Hx of arthroscopic knee surgery History of PTCA PCI to mid bifurcating LAD with drug-eluting stent and balloon angioplasty to ostial jailed diagonal - 2 No significant past surgical history Family History Father CAD (coronary artery disease), Onset Age: 50 valve replacement, [place] Diabetes Hypertension Cancer Lung disease Bleeding disorder Clotting disorder Grandfather No problems noted. Mother Cancer Lung disease Sister Cancer Lung disease Denies family history of Dementia Chronic kidney disease (CKD) Suicide Anesthesia complication Stroke Social History Smoking and tobacco/nicotine status: never used tobacco/nicotine Alcohol intake: former Substance/Drug Use: never Physical Exam 2 Const: GENERAL APPEARANCE: cooperative ORIENTATION/CONSCIOUSNESS: Yes awake, Yes oriented to person, Yes oriented to place and Yes oriented to time HENMT: COMMON NORMALS: normocephalic, atraumatic and hearing grossly normal bilaterally HEAD & SCALP: normocephalic and atraumatic Resp: COMMON NORMALS: normal respiratory effort, No retractions, No use of accessory muscles and clear to auscultation bilaterally AUSCULTATION: clear to auscultation bilaterally Cardio: COMMON NORMALS: regular rate, regular rhythm and No murmurs present (Cardio) RATE: regular rate RHYTHM: regular rhythm GI: COMMON NORMALS: Soft to palpation and No hepatosplenomegaly present A USCULTATION: Yes normoactive bowel sounds PALPATION: Yes Soft to palpation, No Tenderness to palpation present (GI), No Guarding due to palpation present (GI) and Yes No hepatosplenomegaly present Extremity: COMMON NORMALS: normal to inspection, capillary refill normal, no clubbing, cyanosis or edema, no calf tenderness and no pedal edema Neuro: SENSORIUM/ORIENTATION: Yes oriented to person, Yes oriented to place and Yes oriented to time Course 2 Vital Signs: Vital signs: Vital Signs Temperature 97.4 F L 04/30/25 06:04 Pulse Rate 89 04/30/25 08:02 Respiratory Rate 16 04/30/25 06:04 Blood Pressure 163/94 04/30/25 08:02 Pulse Oximetry 97 04/30/25 08:02 Oxygen Delivery Me thod Room Air 04/30/25 06:04 MDM - Male Medical Decision Making Kelly irrigated and drained patient feeling much better we clamped at 600 and then released the rest a little over thousand. We considered replacing his Kelly but we did not have an appropriate daily I did not want to remove it and not be able to put a new one in. Patient has a Kelly bag on now he has several leg bags at home. Kelly emptied he will be discharged home continue instructions he received from urology and follow-up with them as scheduled. Continue prescribed antibiotics. Return if he has further problems with poor drainage of from the catheter. Medical Records I reviewed the patient's medical records. Lab Data I reviewed the patient's lab results. 04/30/25 06:20 04/30/25 06:20 Laboratory Results WBC 11.96 10^3/uL (3.29-11.43) H 04/30/25 06:20 RBC 4.54 10^6/uL (3.85-5.65) 04/30/25 06:20 Hgb 12.50 g/dL (11.27-16.99) 04/30/25 06:20 Hct 38.8 % (37-53) 04/30/25 06:20 MCV 85.5 fl (82-101) 04/30/25 06:20 MCH 27.5 pg (27-33) 04/30/25 06:20 MCHC 32.2 g/dL (30-55) 04/30/25 06:20 RDW 14.0 % (12.1-15.1) 04/30/25 06:20 Plt Count 346 10^3/cmm (157-399) 04/30/25 06:20 MPV 9.5 fL (7.4-10.4) 04/30/25 06:20 Neut % (Auto) 61.1 % 04/30/25 06:20 Lymph % (Auto) 19.6 % 04/30/25 06:20 [place] % (Auto) 6.4 % 04/30/25 06:20 Eos % (Auto) 4.2 % 04/30/25 06:20 Baso % (Auto) 0.9 % 04/30/25 06:20 Neut # (Auto) 7.30 10^3/uL (1.8-7.7) 04/30/25 06:20 Lymph # (Auto) 2.4 10^3/uL (0.8-4.8) 04/30/25 06:20 [place] # (Auto) 0.8 10^3/uL (0.2-0.9) 04/30/25 06:20 Eos # (Auto) 0.5 10^3/uL (0.0-0.8) 04/30/25 06:20 Baso # (Auto) 0.1 10^3/uL (0.0-0.1) 04/30/25 06:20 Nucleated RBC % (auto) 0 % 04/30/25 06:20 Nucleated RBCs # 0.0 /100WBC 04/30/25 06:20 Sodium 137 mmol/L (136-145) 04/30/25 06:20 Potassium 4.1 mmol/L (3.5-5.1) 04/30/25 06:20 Chloride 101 mmol/L (98-107) 04/30/25 06:20 Carbon Dioxide 22 mmol/L (22-29) 04/30/25 06:20 Anion Gap 18.1 (5-19) 04/30/25 06:20 BUN 25 mg/dL (8-23) H 04/30/25 06:20 Creatinine 0.8 mg/dL (0.7-1.2) 04/30/25 06:20 GFR Calculation 98.3 mL/min (90-130) 04/30/25 06:20 Glucose 125 mg/dL (65-115) H 04/30/25 06:20 Calculated Osmolality 290 mOsm/kg (285-295) 04/30/25 06:20 Calcium 9.3 mg/dL (8.5-10.5) 04/30/25 06:20 Total Bilirubin 0.2 mg/dL (0.15-1.2) 04/30/25 06:20 Direct Bilirubin 0.09 mg/dL (0.00-0.30) 04/30/25 06:20 AST 18 U/L (0-40) 04/30/25 06:20 ALT 35 U/L (0-41) 04/30/25 06:20 Alkaline Phosphatase 111 U/L (40-130) 04/30/25 06:20 Total Protein 6.8 g/dL (6.6-8.7) 04/30/25 06:20 Albumin 4.1 g/dL (3.5-5.2) 04/30/25 06:20 Globulin 2.7 g/dL (1.3-4.6) 04/30/25 06:20 Urine Color Yellow (Yellow) 04/30/25 06:34 Urine Appearance Slightly cloudy (CLEAR) 04/30/25 06:34 Urine pH 5 (5-7) 04/30/25 06:34 Ur Specific [place] 1.010 (1.005-1.030) 04/30/25 06:34 Urine Protein 1+ (Negative) H 04/30/25 06:34 Urine Glucose (UA) Norm (Normal) 04/30/25 06:34 Urine Ketones Negative (Negative) 04/30/25 06:34 Urine Blood 3+ (Negative) H 04/30/25 06:34 Urine Nitrate Negative (Negative) 04/30/25 06:34 Urine Bilirubin Neg (Negative) 04/30/25 06:34 Urine Urobilinogen Neg mg/dL (Negative) 04/30/25 06:34 Ur Leukocyte Esterase 1+ (Negative) H 04/30/25 06:34 Urine RBC >100 /hpf (0-2) H 04/30/25 06:34 Urine WBC 5-10 /hpf (0-5) H 04/30/25 06:34 Ur Squamous Epith Cells 0-4 /hpf (0-5) H 04/30/25 06:34 Amorphous Sediment Not Reportable 04/30/25 06:34 Urine Bacteria Trace /hpf (NONE) 04/30/25 06:34 No radiology studies performed this visit Discharge Plan Discharge Patient Disposition: Home Clinical Impression: Prostatitis, acute, Diabetes, Obstructed Kelly catheter Condition: Stable Prescriptions: No Action multivitamin Tablet 1 tab PO DAILY acetaminophen [Tylenol Extra Strength] 500 mg tablet 1,000 mg PO BID hydroxychloroquine 200 mg tablet 400 mg PO DAILY Qty: 180 1RF lisinopril 20 mg tablet 20 mg PO QDAY clopidogrel 75 mg tablet See Rx Instructions .ROUTE .COMPLEX Qty: 90 3RF Dose Instruction: TAKE 1 TABLET DAILY Rx Instructions: TAKE 1 TABLET DAILY atorvastatin 40 mg tablet See Rx Instructions .ROUTE .COMPLEX Qty: 90 3RF Dose Instruction: TAKE 1 TABLET DAILY Rx Instructions: TAKE 1 TABLET DAILY amlodipine 5 mg tablet See Rx Instructions .ROUTE .COMPLEX Qty: 90 3RF Dose Instruction: TAKE 1 TABLET DAILY Rx Instructions: TAKE 1 TABLET DAILY prednisone 20 mg tablet See Rx Instructions PO .COMPLEX PRN (Reason: joint pain flare) Qty: 30 1RF Rx Instructions: take 1 or 2 tab daily for up to 7 days as needed for arthritis flare PO PRN; tamsulosin [Flomax] 0.4 mg capsule 0.4 mg PO DAILY Qty: 90 11RF Discharge Orders: Discharge ED (Routine); Ordered 04/30/25 Ordered By: Flako Cavanaugh Referrals: Richmond Rogel MD [Primary Care Provider, Family Practice] Patient Instructions: Opioid Safety, Pain Management, Patient Portal & Lillian Instructions Activity Restrictions/Additional Instructions: Thank you for choosing [facility] for your healthcare needs today. It is very important that you follow up as instructed or that you return to the Emergency Department should you have concerns or if your condition changes or worsens in any way. Emergency department visits are focused on emergent conditions, in some cases you may require further evaluation on an outpatient basis. You were seen in the emergency room with complaints of difficulty with your Kelly catheter after irrigation were able to drain a significant amount of urine. You be discharged home continue previously prescribed medications for your prostatitis and follow-up with urology as scheduled. (Please note that included in your discharge packet is information concerning opioid safety and pain management. This information is given to all patients were discharged from the ER regardless of their discharge diagnosis or the medicines they usually take or are prescribed.) Print Language: Kyrgyz Coding Level of Care Code ED Student Recruiter for Otis Richter
[2025-04-30 06:26] LABS: Hematocrit 38.8 % (37-53); Hemoglobin 12.50 g/dL (11.27-16.99); Mean Corpuscular HGB Conc 32.2 g/dL (30-55); Mean Corpuscular Hemoglobin 27.5 pg (27-33); Mean Corpuscular Volume 85.5 fl (82-101); Nucleated Red Blood Cells % 0 %; Platelet Count 346 10^3/cmm (157-399); Red Blood Count 4.54 10^6/uL (3.85-5.65); White Blood Count 11.96 10^3/uL (3.29-11.43)
[2025-04-30 06:42] LABS: Anion Gap 18.1 (5-19); Blood Urea Nitrogen 25 mg/dL (8-23); Calcium 9.3 mg/dL (8.5-10.5); Carbon Dioxide 22 mmol/L (22-29); Chloride 101 mmol/L (98-107); Creatinine Clr Calc Pharmacy 122.8801; Glucose 125 mg/dL (65-115); Osmolality Calculated 290 mOsm/kg (285-295); Potassium 4.1 mmol/L (3.5-5.1); Sodium 137 mmol/L (136-145)
[2025-04-30 06:56] LABS: Specific Gravity, Urine 1.010 (1.005-1.030)
[2025-04-30 06:57] LABS: Add Urine Microscopic? YES; Glucose Urine UA Norm (Normal); Nitrate Urine Negative (Negative); UA Manual Slide Review YES
[2025-04-30 07:01] LABS: Alanine Aminotransferase 35 U/L (0-41); Albumin Level 4.1 g/dL (3.5-5.2); Alkaline Phosphatase 111 U/L (40-130); Aspartate Amino Transferase 18 U/L (0-40); Globulin 2.7 g/dL (1.3-4.6); Total Protein 6.8 g/dL (6.6-8.7)
[2025-04-30 07:41] LABS: Slide Review Slide Review Perform
[2025-04-30 08:02] VITALS: BP 163/94; PULSE 89; O2SAT 97
== END 2025-04-30 08:02 | disposition home or self-care (01) ==
PROVIDERS: Emergency Provider Family Medicine; PCP Family Medicine
DX: N41.0 Acute prostatitis (principal); E11.9 Type 2 diabetes mellitus without complications; T83.091A Other mechanical complication of indwelling urethral catheter, initial encounter; Y83.8 Other surgical procedures as the cause of abnormal reaction of the patient, or of later complication, without mention of misadventure at the time of the procedure
CPT/HCPCS: 36415; 80048; 80076; 81001; 85025; 87086; 99283

== ENCOUNTER → 2025-05-30 13:27 | Outpatient (BNVA) | payer OTHER, SELFPAY | PROVIDERS: PCP Family Medicine; Referring Provider Family Medicine; Visit Provider Internal Medicine Cardiovascular Disease | DX: I45.10 Unspecified right bundle-branch block (principal); R07.9 Chest pain, unspecified | CPT/HCPCS: 93005 ==

== ENCOUNTER → 2025-06-12 08:22 | Outpatient (BNVA) | payer OTHER, SELFPAY | PROVIDERS: PCP Family Medicine; Visit Provider Family Medicine | DX: N41.0 Acute prostatitis (principal); R97.20 Elevated prostate specific antigen [PSA]; I25.10 Atherosclerotic heart disease of native coronary artery without angina pectoris; N40.0 Benign prostatic hyperplasia without lower urinary tract symptoms | CPT/HCPCS: 80048; 83880; 85025; G0103 ==

== ENCOUNTER 2025-06-29 07:29 | Outpatient (CLI) | payer OTHER, SELFPAY ==
[2025-06-29 08:04] VITALS: BMI 41.8
--- NOTE | 2025-06-29 08:18 | ECG_ITS ---
VSS Monitoring Test Date: 2025-06-29 Pat Name: Evangelista Santos Department: Room: Gender: Male Yarn Hauler: : 1965 Requested By: Jose Angel Fermin Order Number: [id number] Wiley MD: Jose Angel Fermin M.D. Interpretive Statements Procedure: A total of 0.4 mg of Lexiscan was infused over 20 seconds. The stress phase was continued for a total of 5 minutes. Sestamibi was injected 20 seconds after the Lexiscan infusion. Findings: Patient's resting blood pressure was 159/90 mmHg with a heart rate of 74 bpm. After Lexiscan injection the patient had no significant change in blood pressure or heart rate. The baseline EKG showed normal sinus rhythm with poor R wave progression and possible old anterior myocardial infarction. No ST or T wave changes Conclusion: 1. Normal EKG response to Lexiscan infusion with no ischemia. 2. No Lexiscan induced chest pain or cardiac arrhythmia. 3. Normal blood pressure and heart rate response. 4. Nuclear myocardial perfusion scan pending; see separate report. Electronically Signed On 06-29-2025 18:50:24 PAYMENT ANALYST by Jose Angel Fermin M.D. [email or web address]
--- NOTE | 2025-06-29 08:18 | NMCV_ITS ---
NM simba perf SPECT r/s* [id number] Tom Evangelista Age: 59 Gender: M : 1965 Exam Date: 06/29/2025 09:09 Ordering Phys: Jose Angel Fermin MD ([email or web address]) Technologist: KALE To Exam Location: [facility] Indications: cp STRESS TEST Please see separate stress test report in [facility] for full findings IMAGE PROTOCOL Rest/Stress 1 Day Radiopharmaceutical Dose (mCi) Administration Site Administered by Rest: Tc-99m 10.8 IV KALE To Sestamibi Stress:Tc-99m 32.9 IV KALE Tompkins Sestamibi Rest: 29-Jun-2025 60 Discovery 630 Stress: 29-Jun-2025 30 Discovery 630 0.4mg Lexiscan. Images obtained in supine and prone position. SPECT RESULTS Technical Quality: Poor Raw Data Analysis: Normal Image Corrections: No attenuation or motion correction applied Summed Stress Score: 6 Summed Rest Score: 6 Summed Difference Score: 3 PERFUSION FINDINGS There is a small sized area of moderately reduced tracer counts in the inferior wall on both rest and the stress images. This area can be consistent with both artifact as well as infarction. There is a small fixed perfusion defect in the anteroseptum consistent with artifact versus infarction. There are no reversible defects. FUNCTIONAL RESULTS (calculated via Gated SPECT) Stress Image LV EF (%): 60 Stress EDV (mL):149 TID: 1.01 Stress ESV (mL):60 FUNCTIONAL FINDINGS: There is normal left ventricular systolic function. IMPRESSIONS 1. Myocardial perfusion imaging negative for inducible ischemia. Small areas of infarction versus artifact in the anteroseptal and inferior donald. 2. Globally normal left ventricular systolic function, EF 60% Jose Angel Fermin MD, FACC (Electronically Signed) Final Date: 29 June 2025 17:15 S
[2025-06-29 09:54] VITALS: BP 257/84; PULSE 81
--- NOTE | 2025-06-29 12:45 | USCV_ITS ---
Evangelista Santos Age: 59 Gender: M : 1965 Exam Date: 06/29/2025 13:13 Ordering Phys: Jose Angel Fermin MD ([email or web address]) Technologist: MARILIA Exam Location: [facility] Indication: Murmur BP: 136 / 72 HR: 75 Rhythm: Sinus Technical Quality: Adequate MEASUREMENTS (Male / Female) Normal Values 2D ECHO LV Diastolic Diameter PLAX 5.9 cm 4.2 - 5.9 / 3.9 - 5.3 cm IVS Diastolic Thickness 0.7 cm 0.6 - 1.0 / 0.6 - 0.9 cm IVS Systolic Thickness 0.8 cm LVPW Diastolic Thickness 0.9 cm 0.6 - 1.0 / 0.6 - 0.9 cm LVPW Systolic Thickness 1.0 cm LVOT Diameter 2.0 cm LV Ejection Fraction 2D Teich 10.2 % LV Ejection Fraction MOD 4C 54.1 % LV Ejection Fraction MOD 2C 60.4 % LV Ejection Fraction 2C AL 60.5 % LA Diameter 3.6 cm RA Systolic Volume 4C AL 30.0 ml RA Systolic Volume 4C MOD 29.4 ml LA Sys Volume AL 51.3 cm cubed LA Sys Volume Index AL 20.8 cm cubed/m squared Aorta at Sinotubular Diameter 2.6 cm M-MODE LA Ao Ratio MM 1.3 AV Cusp Separation MM 1.3 cm DOPPLER AV Peak Velocity 156.0 cm/s LVOT Peak Velocity 115.0 cm/s AV Area Cont Eq vti 2.4 cm squared AV Area Cont Eq pk 2.2 cm squared MV Peak Velocity 110.0 cm/s MV Area PHT 4.9 cm squared Mitral E to A Ratio 0.8 TV Peak E Velocity 73.0 cm/s PV Peak Velocity 119.0 cm/s FINDINGS Left Ventricle Normal left ventricular size, systolic function and wall thickness with no regional wall motion abnormality. Left ventricular ejection fraction is65%. Normal left ventricular diastolic function. Right Ventricle Normal right ventricular size and systolic function. RVSP could not be calculated due to incomplete tricuspid regurgitation velocity profile. Right Atrium Normal right atrial size. Left Atrium Normal left atrial size. IA Septum Normal appearance of the interatrial septum. Mitral Valve Normal mitral valve structure. No mitral valve stenosis or regurgitation. Aortic Valve Aortic valve not well-visualized. Possible mild aortic valve calcification. No aortic valve stenosis. No aortic valve regurgitation Tricuspid Valve Normal tricuspid valve structure. No tricuspid valve stenosis or regurgitation. Pulmonic Valve Normal pulmonic valve structure. No pulmonic valve stenosis or regurgitation. Pericardium No pericardial effusion. Aorta Normal diameter of the aortic root and ascending thoracic aorta. IVC Normal IVC diameter. CONCLUSIONS Normal left ventricular size, systolic function and wall thickness with ejection fraction of 65%. Normal right ventricular size and systolic function. Aortic valve not well-visualized. Possible mild aortic valve calcification. No aortic valve stenosis. No aortic valve regurgitation Jose Angel Fermin MD, FACC (Electronically Signed) Final Date: 29 June 2025 17:48 S
== END 2025-06-29 07:30 | disposition home or self-care (01) ==
LOC: CDL 07:31
PROVIDERS: PCP Family Medicine; Visit Provider Internal Medicine Cardiovascular Disease
DX: R01.1 Cardiac murmur, unspecified (principal); R07.9 Chest pain, unspecified; I25.2 Old myocardial infarction; Z98.890 Other specified postprocedural states
CPT/HCPCS: 36415; 78452; 93017; 93306; 96374; A9500; J2785